=== PATIENT | male | born 1950 | race Caucasian/White ===

== ENCOUNTER 2020-03-29 13:05 | Emergency (ER) | payer BC, SELFPAY ==
[2020-03-29 13:05] VITALS: BP 149/68; PULSE 63; RESP 16; TEMP 36.1; O2SAT 100; BMI 24.3
--- NOTE | 2020-03-29 13:33 | ED.VISSUMM ---
- ER Visit Summary Date of Service: 03/29/20 Chief Complaint: Right leg pain. History of Present Illness: The patient is a 69 M who presents with right leg pain that has been getting worse over the past week. Patient states it is constant. Patient states it is burning. Patient states it is better with certain positions. Patient admits to a recent flight from [place] on 02/11/2020. Patient denies any fevers or chills. Patient denies any chest pain or shortness of breath. Patient denies any nausea or vomiting. Patient also complains of some pain over the medial aspect of the left knee. Patient denies any trauma or injury. Physical Examination: Vital signs are stable. Patient is afebrile. Patient is in no acute distress. There is some mild erythema and tenderness over the medial aspect of the right lower leg. There is no discharge or drainage. There is no abscess or fluctuance. There is good range of motion of the lower extremities bilaterally. There is also some mild tenderness over the medial aspect of the left knee. There is no edema or ecchymosis. There is no deformity. There is no joint effusion. There is no erythema on the left leg. Pedal pulses are equal bilateral. There are no sensory deficits. Test Results: CBC and basic metabolic profile were obtained and were within normal limits. D-dimer was elevated 2.11. Emergency Department Course and Treatment: Venous duplex was unable to be obtained today. Patient was given a dose of Lovenox here. Patient was given an order for an outpatient venous duplex of his lower extremities to be obtained tomorrow. Patient was instructed return as an outpatient tomorrow. Patient understood and was agreeable with the plan. All questions were answered. Disposition: Discharge home Impression: Bilateral lower extremity pain This note was generated with [employer] software. It may contain incorrect words, spelling, and punctuation that were not noted in review of the chart prior to signing ED Disposition - Plan for ED Patient: Disposition: Home or Assisted Living Diagnosis: Bilateral lower extremity pain Instructions: ED Deep Vein Thrombosis (DVT), ED Pain, Acute, Uncertain Cause
[2020-03-29 14:01] LABS: Absolute Lymphocyte Count 1.78 X10^3/uL (0.83-4.51); Absolute Neutrophil Count 4.2 X10^3/uL (2.0-7.7); Basophil# 0.05 X10^3/uL; Basophil% 0.7 % (0-1); Eosinophil# 0.25 X10^3/uL; Eosinophils% 3.6 % (0-5); Hematocrit 41.4 % (40-54); Lymphocyte # 1.78 X10^3/ul (4.0); Lymphocyte % 25.5 % (19-41); Mean Corp Hgb Conc 31.4 g/dL (32-36); Mean Corpuscular Hgb 28.6 pg (27.0-32.0); Mean Platelet Vol. 9.5 fl (6.2-12.0); Monocyte# 0.75 X10^3/uL; Monocyte% 10.7 % (0-10); NRBC Flagged by Analyzer 0 % (0-5); Neutrophil # 4.15 X10^3/uL (2.7-7.7); Neutrophil % 59.4 % (47-70); Platelet Count 331 K/mm3 (150-450); RBC Distribution Width CV 12.3 % (11.6-14.6); RBC Distribution Width SD 40.8 fl (35.1-43.9); Red Blood Count 4.55 M/mm3 (4.6-6.2)
[2020-03-29 14:13] LABS: D-Dimer Quantitative (DVT/PE) 2.11 FEU/ug/m (0.27-0.49)
[2020-03-29 14:19] LABS: Anion Gap 2 (5-15); BUN 17 mg/dL (7-18); BUN/Creat Ratio 17.2 RATIO (10-20); Calcium,Total 9.3 mg/dL (8.5-10.1); Chloride 108 mmol/L (98-107); Creatinine, Serum 0.99 mg/dL (0.70-1.30); EST Glomerular Filtration Rate 80 mL/min (>60); Est Glom Filt Rate - Afr Amer 97 mL/min (>60); Estimated Creatinine Clearance 72.41 ml/min; Glucose 89 mg/dL (74-106); Potassium 4.2 mmol/L (3.5-5.1); Sodium Level 139 mmol/L (136-145)
[2020-03-29] MEDS: Enoxaparin 80 MG/0.8 ML Syringe SC (14:54)
== END 2020-03-29 14:58 | disposition home or self-care (01) ==
PROVIDERS: Emergency Provider Emergency Medicine
DX: M79.604 Pain in right leg (principal); M25.562 Pain in left knee
CPT/HCPCS: 80048; 85025; 85379; 96372; 99282

== ENCOUNTER → 2020-03-30 10:46 | Outpatient (CLI) | payer BC, SELFPAY ==
[2020-03-29 13:05] VITALS: BMI 24.3
--- NOTE | 2020-03-30 10:56 | VDLE_ITS ---
Reason For Study: Pain and tenderness RIGHT LEFT CFV is compressible, spontaneous, phasic, GSV is normal. competent and demonstrates normal CFV is compressible, spontaneous, phasic, augmentation. competent, and demonstrates normal FV is compressible, spontaneous, phasic, augmentation. competent and demonstrates normal FV is compressible, spontaneous, phasic, augmentation. competent and demonstrates normal POP V is compressible, spontaneous, phasic, augmentation. competent and demonstrates normal POP V is compressible, spontaneous, phasic, augmentation. competent and demonstrates normal T/P Trunk is compressible. augmentation. PTV is compressible. T/P Trunk is compressible. RT PerV is compressible. PTV is compressible. Acute superficial vein thrombosis is noted LT PerV is compressible. in the right proximal calf GSV. Nonvascualrized structure noted in the left Thrombus filled varicose veins noted in the popliteal fossa measuring approximently 1.00 right prox-mid calf. x 1.69 x 4.05 cm. Procedure This is a venous duplex using B-mode, color flow and spectral Doppler. Exam performed in department. A preliminary report was called and/or faxed to ED. Done as next day ED scan, pt taken down to ED for treatment. Interpretation Summary No evidence for acute deep venous thrombosis bilateral lower extremities Superficial thrombophlebitis right proximal calf great saphenous vein and varicose veins of the proximal to mid calf Patent and compressible left great saphenous vein Left popliteal space 1 x 1.69 x 4.05 cm Bakers cyst. Clinical correlation would be appropriate Ordering Physician: Nic Kaur Performed By: Edna Rousseau RVT
== END ==
PROVIDERS: Referring Provider Emergency Medicine; Visit Provider Emergency Medicine
DX: M79.604 Pain in right leg (principal); M79.605 Pain in left leg; R79.1 Abnormal coagulation profile
CPT/HCPCS: 93970

== ENCOUNTER 2020-03-30 11:23 | Emergency (ER) | payer BC, SELFPAY ==
[2020-03-29 13:05] VITALS: BMI 24.3
[2020-03-30 11:24] VITALS: BP 137/78; PULSE 58; RESP 18; TEMP 36.2; O2SAT 99; BMI 25.2
--- NOTE | 2020-03-30 12:11 | ED.DCSUM_ITS ---
- ER Visit Summary Date of Service: 03/30/20 Chief Complaint: Right leg blood clot History of Present Illness: The patient is a 69 M who presents from outpatient venous duplex with a blood clot in his right leg. Patient was seen here yesterday and was scheduled to have an outpatient venous duplex of his right lower extremity to rule out DVT today. Patient had this done. There is an acute superficial vein thrombosis noted in the right proximal calf greater saphenous vein. There are thrombus filled varicose veins noted in the right proximal to mid calf. Patient denies any worsening pain today. Patient denies any fevers. Patient denies any chest pain or shortness of breath. Patient denies any nausea or vomiting. Physical Examination: Vital signs are stable. Patient is afebrile. Patient is in no acute distress. Musculoskeletal exam reveals some mild tenderness over t he medial aspect of the right lower leg. There is some erythema. There is some mild edema. There is full range of motion. Pedal pulses are equal bilaterally. This was unchanged from yesterday's exam. There is no tenderness or edema of the thigh. There is still some mild tenderness over the left knee area. There is no effusion. There is full range of motion. Test Results: Venous duplex report shows superficial vein thrombosis in the proximal calf greater saphenous vein and thrombus filled varicose veins in the right proximal to mid calf. Emergency Department Course and Treatment: Given that this is in the greater saphenous vein which is in line with the deep vein system, the recommendation is to place the patient on Xarelto 10 mg daily. Patient was given his first dose here. Patient was given a prescription for Xarelto. Patient was referred to a primary care physician for follow-up care in 5 to 7 days. Patient understood and was agreeable with the plan. All questions were answered. Disposition: Discharge home Impression: 1. Superficial vein thrombosis right greater saphenous vein This note was generated with [employer] dictation software. It may contain incorrect words, spelling, and punctuation that were not noted in review of the chart prior to signing ED Disposition - Plan for ED Patient: Disposition: Home or Assisted Living Diagnosis: Acute superficial venous thrombosis of right lower extremity Prescriptions: Rivaroxaban [Xarelto] 10 mg PO DAILY 45 Days #44 tab Transmission Status: Pending to [facility]30 Referrals: Asia Topete DO [STAFF PHYSICIAN] - 5-7 Days
[2020-03-30] MEDS: Rivaroxaban 10 MG Tablet PO (12:48)
[2020-03-30 12:50] VITALS: BP 133/68; PULSE 64; RESP 16; O2SAT 97
== END 2020-03-30 12:51 | disposition home or self-care (01) ==
PROVIDERS: Emergency Provider Emergency Medicine
DX: I82.811 Embolism and thrombosis of superficial veins of right lower extremity (principal)
CPT/HCPCS: 99283

== ENCOUNTER → 2020-04-07 | Outpatient (CLI) | payer BC, SELFPAY ==
[2020-03-30 11:24] VITALS: BMI 25.2
[2020-04-07 17:48] LABS: Pathologist Comment May follow
[2020-04-07 17:50] LABS: Pathologist Comment May follow
[2020-04-07 21:33] LABS: AUTO B FLUID DILUENT BKGD CT WBC <0.1 RBC <0.01 (W<.1,R<.01); Source- Body Fluid SYNOVIAL
[2020-04-07 21:41] LABS: Source / Synovial Fluid LEFT KNEE; Viscosity / Synovial Fluid Sl. Viscous (HIGH)
[2020-04-07 21:42] LABS: Appearance /Synovial Fluid Sl hazy (CLEAR); Color / Synovial Fluid Yellow (Pale Yellow); RBC /Synovial Fluid 51 /mm3 (0); Synovial Fld Polynuclear WBC # 0.522 10^3/uL
[2020-04-07 21:43] LABS: Lymph 15 %; Monocyte /Synovial Fluid 19 %; Neutrophil 66 % (0-25); Synovial Fld Mononuclear WBC # 1.278 10^3/ul
[2020-04-07 21:46] LABS: AUTO B FLUID DILUENT BKGD CT WBC <0.1 RBC <0.01 (W<.1,R<.01); Source- Body Fluid SYNOVIAL
[2020-04-07 21:47] LABS: Appearance /Synovial Fluid Sl hazy (CLEAR); Color / Synovial Fluid Yellow (Pale Yellow); Source / Synovial Fluid RIGHT KNEE; Viscosity / Synovial Fluid Sl. Viscous (HIGH)
[2020-04-07 21:48] LABS: Lymph 4 %; Monocyte /Synovial Fluid 29 %; Neutrophil 67 % (0-25); RBC /Synovial Fluid 7 /mm3 (0); Synovial Fld Mononuclear WBC # 1.891 10^3/ul; Synovial Fld Mononuclear WBC % 26.3 %; Synovial Fld Polynuclear WBC # 5.301 10^3/uL; Synovial Fld Polynuclear WBC % 73.7 %
[2020-04-08 14:17] LABS: Pathologist Review Reviewed
== END | disposition home or self-care (01) ==
PROVIDERS: PCP Internal Medicine; Referring Provider Physician Assistant Surgical; Visit Provider Physician Assistant Surgical
DX: M17.12 Unilateral primary osteoarthritis, left knee (principal)
CPT/HCPCS: 87015; 87070; 87075; 87101; 87116; 87205; 87206; 89050; 89051; 89060

== ENCOUNTER → 2020-04-24 08:48 | Outpatient (CLI) | payer BC, SELFPAY ==
[2020-03-30 11:24] VITALS: BMI 25.2
--- NOTE | 2020-04-24 08:57 | VDLE_ITS ---
Reason For Study: Thrombophlebitis RIGHT CFV is compressible, spontaneous, phasic, competent and demonstrates normal augmentation. FV is compressible, spontaneous, phasic, competent and demonstrates normal augmentation. POP V is compressible, spontaneous, phasic, competent and demonstrates normal augmentation. T/P Trunk is compressible. PTV is compressible. RT PerV is compressible. GSV prox calf is partially compressible. with bright intraluminal echoes noted consistent with Chronic SVT. Thrombus filled varicose veins noted in the prox-mid calf. Procedure This is a venous duplex using B-mode, color flow and spectral Doppler. Exam performed in department. Compared to study done on 03/30/20. A preliminary report was called and/or faxed to [facility]. Interpretation Summary There is no evidence of right lower extremity deep vein thrombosis. Chronic superficial thrombophlebitis right proximal Great saphenous vein and right proximal to mid calf varicosities. Slight improvement noted since the previous examination of March 30, 2020 Ordering Physician: Asia Topete Referring Physician: Asia Topete Performed By: Edna Rousseau RVT
== END ==
PROVIDERS: PCP Internal Medicine; Referring Provider Internal Medicine; Visit Provider Internal Medicine
DX: I80.01 Phlebitis and thrombophlebitis of superficial vessels of right lower extremity (principal)
CPT/HCPCS: 93971

== ENCOUNTER → 2020-05-30 | Outpatient (CLI) | payer BC, SELFPAY ==
[2020-05-30 17:11] LABS: Pathologist Comment May follow
[2020-05-30 17:40] LABS: Synovial Fld Mononuclear WBC % 25.5 %; Synovial Fld Polynuclear WBC # 3.045 10^3/uL; Synovial Fld Polynuclear WBC % 74.5 %
[2020-05-30 18:54] LABS: AUTO B FLUID DILUENT BKGD CT WBC <0.1 RBC <0.01 (W<.1,R<.01); Monocyte /Synovial Fluid 15 %; Neutrophil 85 % (0-25); Source / Synovial Fluid RIGHT KNEE; Source- Body Fluid SYNOVIAL
[2020-05-30 18:55] LABS: Appearance /Synovial Fluid Cloudy (CLEAR)
[2020-05-30 18:56] LABS: Body Fluid QC Type(s) BF3Q,BF4Q; RBC /Synovial Fluid 234 /mm3 (0); Synovial Fld Mononuclear WBC # 1.043 10^3/ul
[2020-05-30 19:06] LABS: Color / Synovial Fluid Yellow (Pale Yellow)
[2020-06-02 12:10] LABS: Pathologist Review Reviewed
== END | disposition home or self-care (01) ==
LOC: LABSPEC 15:19
PROVIDERS: PCP Internal Medicine; Visit Provider Physician Assistant Surgical
DX: M17.11 Unilateral primary osteoarthritis, right knee (principal); M25.461 Effusion, right knee
CPT/HCPCS: 87070; 87075; 87077; 87186; 87205; 89050; 89051; 89060

== ENCOUNTER → 2020-06-04 11:37 | Outpatient (CLI) | payer BC, SELFPAY ==
[2020-06-04 11:51] LABS: Pathologist Comment May follow
[2020-06-04 12:33] LABS: Erythrocyte Sedimentation Rate 32 mm/hr (0-20)
[2020-06-04 12:37] LABS: Absolute Lymphocyte Count 1.65 X10^3/uL (0.83-4.51); Absolute Neutrophil Count 4.1 X10^3/uL (2.0-7.7); Basophil# 0.08 X10^3/uL; Basophil% 1.2 % (0-1); Eosinophil# 0.38 X10^3/uL; Eosinophils% 5.5 % (0-5); Hematocrit 40.2 % (40-54); Hemoglobin 12.6 g/dL (13.0-16.5); Lymphocyte # 1.65 X10^3/ul (4.0); Lymphocyte % 23.8 % (19-41); Mean Corp Hgb Conc 31.3 g/dL (32-36); Mean Corpuscular Hgb 28.8 pg (27.0-32.0); Mean Corpuscular Volume 91.8 fL (80-94); Monocyte# 0.74 X10^3/uL; Monocyte% 10.7 % (0-10); NRBC Flagged by Analyzer 0 % (0-5); Neutrophil # 4.06 X10^3/uL (2.7-7.7); Neutrophil % 58.5 % (47-70); Platelet Count 273 K/mm3 (150-450); RBC Distribution Width CV 13.4 % (11.6-14.6); RBC Distribution Width SD 45.9 fl (35.1-43.9); Red Blood Count 4.38 M/mm3 (4.6-6.2); White Blood Count 6.9 K/mm3 (4.4-11.0)
[2020-06-04 13:47] LABS: Synovial Fld Mononuclear WBC % 36.4 %; Synovial Fld Polynuclear WBC # 2.177 10^3/uL; Synovial Fld Polynuclear WBC % 63.6 %
[2020-06-04 13:49] LABS: RBC /Synovial Fluid 0.003 10^6/uL (0)
[2020-06-04 13:53] LABS: AUTO B FLUID DILUENT BKGD CT WBC <0.1 RBC <0.01 (W<.1,R<.01); CRYSTALS, BODY FLUID See PATH REV
[2020-06-04 13:54] LABS: Color / Synovial Fluid Straw (Pale Yellow); Source- Body Fluid SYNOVIAL; Viscosity / Synovial Fluid Liquid (HIGH)
[2020-06-04 13:55] LABS: Appearance /Synovial Fluid Sl hazy (CLEAR)
[2020-06-04 14:11] LABS: Lymph 5 %; Synovial Fld Mononuclear WBC # 1.248 10^3/ul
[2020-06-04 14:12] LABS: Monocyte /Synovial Fluid 34 %; Neutrophil 61 % (0-25)
[2020-06-05 11:23] LABS: Pathologist Review Reviewed
== END ==
PROVIDERS: PCP Internal Medicine; Referring Provider Physician Assistant Surgical; Visit Provider Physician Assistant Surgical
DX: M25.461 Effusion, right knee (principal); M70.41 Prepatellar bursitis, right knee; M11.261 Other chondrocalcinosis, right knee
CPT/HCPCS: 36415; 85025; 85652; 86140; 87070; 87075; 87205; 89050; 89051; 89060

== ENCOUNTER 2020-07-14 12:50 | Outpatient (RCR) | payer BC, SELFPAY ==
[2020-07-14 13:22] VITALS: BP 144/77; PULSE 67; RESP 18; TEMP 36.9; BMI 25.2
--- NOTE | 2020-07-14 14:47 | PCM.WC.HP ---
(1) Ulcer of right medial lower extremity Status: Chronic Code(s): L97.819 - Non-pressure chronic ulcer of other part of right lower leg with unspecified severity (2) Edema of right lower extremity Status: Chronic Code(s): R60.0 - Localized edema (3) Thrombophlebitis of right lower extremity Status: Chronic Code(s): I80.291 - Phlebitis and thrombophlebitis of other deep vessels of right lower extremity History of Present Illness Date of Service: 07/14/20 Past Medical History Past Medical History: Chronic Problems Ulcer of right medial lower extremity (Chronic) Edema of right lower extremity (Chronic) Thrombophlebitis of right lower extremity (Chronic) Allergies/Adverse Reactions: Allergies No Known Allergies Allergy (Verified 03/30/20 11:26) Home Medications: Ambulatory Orders Medication Instructions Recorded Cholecalciferol (Vitamin D3) 2,000 unit PO 07/14/20 [D3-2000] Rivaroxaban [Xarelto] 10 mg PO DAILY 07/14/20 Ubidecarenone [Co Q-10] 300 mg PO 07/14/20 Smoking Status: Never smoker - Physical Exam Vital Signs Temp Pulse Resp BP 98.5 F 67 18 144/77 H 07/14/20 13:22 07/14/20 13:22 07/14/20 13:22 07/14/20 13:22 Wound Measurements and Assessment WC - Nurse 1 - General Ulcer Measurement Start: 07/14/20 13:06 Freq: Status: Active Protocol: Activity Type Activity Date Activity User E-Sign Co-Sign Detail Recorded Client Recorded Date Recorded By Document 07/14/20 13:22 DL [id number] 07/14/20 13:41 DL 07/14/20 13:22 Wound Center Nurse 1 [Ulcer Assessment] #1 R Med Ankle -Current Size (cm) - Length 0.8 -Current Size (cm) - Width 0.8 -Current Size (cm) - Depth 0.1 -Total Square Cm 0.64 -Photo Taken Yes -Classification - Thickness Full Thickness without Exposed Support Structure -Exudate Amt Medium -Exudate Type Serosanguineous -Wound Margin Distinct, Outline Attached -Granulation Amt Large (67-100%) -Granulation Quality [place] -Necrosis Amt Small (1-33%) -Necrotic Tissue Type Adherent Slough -Structure Exposed N/A -Texture (Mackenzie-wound Skin Appearance) Scarring -Moisture (Mackenzie-wound Skin Appearance Weeping ) -Color (Mackenzie-wound Skin Appearance) Hemosiderin Staining -Temperature ([place]ackenzie-wound Skin No Abnormality Appearance) (Pt Warm) -Tenderness on Palpation (Mackenzie-wound No Skin Appearance) -Ulcer Cleansing Rinsed/ Irrigated with Saline -Foul Odor after Cleansing No -Anesthetic Used 4% Lidocaine Solution [Edema Assessment] -Right Calf (cm) 38.5 -Right Ankle (cm) 27 -Left Calf (cm) 34.5 -Left Ankle (cm) 23 WC - Nurse 2 - General Ulcer CM Notes Start: 07/14/20 13:06 Freq: Status: Active Protocol: Activity Type Activity Date Activity User E-Sign Co-Sign Detail Recorded Client Recorded Date Recorded By Document 07/14/20 14:19 ALEX [id number] 07/14/20 14:20 ALEX 07/14/20 14:19 Wound Center Nurse 2 [Procedure/Treatment] #1 R Med Ankle -Time 14:19 -Correct Patient Yes -Correct Side, Site, Position Yes -Correct Procedure Yes -Procedure Performed Yes -Type of Procedure Debridement -Clinical Debridement Subcutaneous -Tissue Removed Subcutaneous -Post Debridement (cm) - Length 1.2 -Post Debridement (cm) - Width 1.2 -Post Debridement (cm) - Depth 0.2 -Total Square (Post) (cm) 1.44 -Area of Debridement (cm) - Length 1.2 -Area of Debridement (cm) - Width 1.2 -Total Square (Area) (cm) 1.44 -Tunneling No -Undermining/Tunneling No -Circular Undermining No -Wound/Ulcer Outcome Not Healed -Ulcer Cleansing Rinsed/ Irrigated with Saline -Foul Odor after Cleansing No -Bioengineered Tissue No -Bleeding Controlled with Pressure -Offloading No -Treatment Response Procedure Tolerated Well -Debridement - Subq, 1st 20sq cm Yes [See Physician Procedure note for Specifics] Pain Scale: 0-10 Numeric [Pain] -Is Patient Pain Free? Yes - Nurse 3 - General Ulcer D/C NN Start: 07/14/20 13:06 Freq: Status: Active Protocol: Activity Type Activity Date Activity User E-Sign Co-Sign Detail Recorded Client Recorded Date Recorded By Document 07/14/20 14:38 DL [id number] 07/14/20 14:40 DL 07/14/20 14:38 Wound Care Nurse 3 [Wound Dressing] #1 R Med Ankle -Ulcer Cleansing Rinsed/ Irrigated with Saline -Foul Odor after Cleansing No -Primary Dressing Applied Promogran Giuliana Matter -Primary Dressing Covered/Secured Dry Gauze & with Roll Gauze, Secured with Tape -Promogran Giuliana Matter 1 [Compression Applied] Right -Tubular Bandage Single Layer -Size of Tubigrip Used Size E -Size E ($) 1 [Post Procedure Tolerated] -Treatment Response Procedure Tolerated Well Pain Scale: 0-10 Numeric [Pain] -Is Patient Pain Free? Yes WC - Visit Discharge [Visit Discharge Information] -Discharge Condition Stable -Ambulatory Status Ambulatory -Transportation Private Auto Debridement Note Post-Debridement Measurements/Treatment WC - Nurse 2 - General Ulcer CM Notes Start: 07/14/20 13:06 Freq: Status: Active Protocol: Activity Type Activity Date Activity User E-Sign Co-Sign Detail Recorded Client Recorded Date Recorded By Document 07/14/20 14:19 [id number] 07/14/20 14:20 ALEX 07/14/20 14:19 Wound Center Nurse 2 #1 R Med Ankle -Time 14:19 -Correct Patient Yes -Correct Side, Site, Position Yes -Correct Procedure Yes -Procedure Performed Yes -Type of Procedure Debridement -Clinical Debridement Subcutaneous -Tissue Removed Subcutaneous -Post Debridement (cm) - Length 1.2 -Post Debridement (cm) - Width 1.2 -Post Debridement (cm) - Depth 0.2 -Total Square (Post) (cm) 1.44 -Area of Debridement (cm) - Length 1.2 -Area of Debridement (cm) - Width 1.2 -Total Square (Area) (cm) 1.44 -Tunneling No -Undermining/Tunneling No -Circular Undermining No -Wound/Ulcer Outcome Not Healed -Ulcer Cleansing Rinsed/ Irrigated with Saline -Foul Odor after Cleansing No -Bioengineered Tissue No -Bleeding Controlled with Pressure -Offloading No -Treatment Response Procedure Tolerated Well -Debridement - Subq, 1st 20sq cm Yes Pain Scale: 0-10 Numeric Is Patient Pain Free? Yes - Nurse 3 - General Ulcer D/C NN Start: 07/14/20 13:06 Freq: Status: Active Protocol: Activity Type Activity Date Activity User E-Sign Co-Sign Detail Recorded Client Recorded Date Recorded By Document 07/14/20 14:38 DL [id number] 07/14/20 14:40 DL 07/14/20 14:38 Wound Care Nurse 3 #1 R Med Ankle -Ulcer Cleansing Rinsed/ Irrigated with Saline -Foul Odor after Cleansing No -Primary Dressing Applied Promogran Giul[place] Matter -Primary Dressing Covered/Secured with Dry Gauze & Roll Gauze, Secured with Tape -Promogran Giuliana Matter 1 Right -Tubular Bandage Single Layer -Size of Tubigrip Used Size E -Size E ($) 1 Treatment Response Procedure Tolerated Well Pain Scale: 0-10 Numeric Is Patient Pain Free? Yes WC - Visit Discharge Discharge Condition Stable Ambulatory Status Ambulatory Transportation Private Auto Assessment/Plan Active Problems Ulcer of right medial lower extremity (Chronic) Edema of right lower extremity (Chronic) Thrombophlebitis of right lower extremity (Chronic)
--- NOTE | 2020-07-15 20:46 | HP.PCM_ITS ---
History of Present Illness Date of Service: 07/14/20 Chief Complaint: Non healing ulcer of right medial ankle History of Wound: Patient flew to [place] in January, he developed bilateral leg swelling and pain. On 03/30/20 he went to the ED for the bilateral leg edema. An ultrasound was performed and it was found that he had a superficial thrombophlebitis of his right proximal calf great saphenous vein and to varicose veins of the proximal mid calf. He was started on Xeralto. Repeat ultrasound of right leg on 04/24/20 showed some slight improvement from previous study. He developed effusion of his right knee that he had drained on 05/30/20 at [facility]. That seems to be resolved for the time being. He had an x- ray of his right ankle on 07/02/20 which showed swelling of his right ankle. He does have a history of vein issues for years. He has seen someone in the past, but does not remember who it was. For his wound care he has bee using over the counter antibiotic ointment and placing a non-adherent gauze over the right medial wound. He has stopped wearing compression because it has become uncomfortable. [facility] Home Medications cholecalciferol (vitamin D3) 2,000 unit PO 07/14/20 [History Last Taken Unknown] coenzyme Q10 300 mg PO 07/14/20 [History Last Taken Unknown] rivaroxaban 10 mg PO DAILY 07/14/20 [History Last Taken Unknown] Allergy/AdvReac Type Severity Reaction Status Date / Time No Known Allergies Allergy Verified 03/30/20 11:26 Social History Smoking Status: Never smoker ROS Constitutional Constitutional: Denies fever(s) Eyes Eyes: Reports none ENT HEENT: Reports none Cardiovascular Cardiovascular: Reports leg edema and leg ulcers; Denies chest pain or dyspnea at rest Respiratory/Chest Respiratory/Chest: Denies dyspnea or shortness of breath at rest Musculoskeletal Musculoskeletal: Reports extremity pain, joint pain and joint swelling Integumentary Integumentary: Reports wounds Neurologic Neurologic: Reports none Psychiatric Psychiatric: Reports none Endocrine Endocrinology: Denies excessive sweating, fatigue or flushing Hematologic/Lymphatic Hematologic/Lymphatic: Reports easy bleeding, easy bruising and other Physical Exam Narrative ?Physical Exam Vital Signs Temp Pulse Resp BP ?98.5 F ?67 ?18 ?144/77 H ?07/14/20 13:22 ?07/14/20 13:22 ?07/14/20 13:22 ?07/14/20 13:22 Wound Measurements and Assessment WC - Nurse 1 - General Ulcer Measurement? Start:? 07/14/20 13:06 Freq: ? Status: Active? Protocol: ? Activity Type Activity Date Activity User E-Sign Co-Sign Detail Recorded Client Recorded Date Recorded By ? ? ? Document 07/14/20 13:22 DL ? ? ? [id number] 07/14/20 13:41 DL ? 07/14/20 ? 13:22 Wound Center Nurse 1 ? [Ulcer Assessment] ? ?#1 R Med Ankle ? ? -Current Size (cm) - Length 0.8 ? -Current Size (cm) - Width 0.8 ? -Current Size (cm) - Depth 0.1 ? -Total Square Cm 0.64 ? -Photo Taken Yes ? -Classification - Thickness Full Thickness ? without Exposed ? Support ? Structure ? -Exudate Amt Medium ? -Exudate Type Serosanguineous ? -Wound Margin Distinct, ? Outline ? Attached ? -Granulation Amt Large (67-100%) ? -Granulation Quality [place] ? -Necrosis Amt Small (1-33%) ? -Necrotic Tissue Type Adherent Slough ? -Structure Exposed N/A ? -Texture (Mackenzie-wound Skin Appearance) Scarring ? -Moisture (Mackenzie-wound Skin Appearance Weeping ) ? ? -Color (Mackenzie-wound Skin Appearance) Hemosiderin ? Staining ? -Temperature (Mackenzie-wound Skin No Abnormality Appearance) (Pt Warm) ? -Tenderness on Palpation (Mackenzie-wound No Skin Appearance) ? ? -Ulcer Cleansing Rinsed/ ? Irrigated with ? Saline ? -Foul Odor after Cleansing No ? -Anesthetic Used 4% Lidocaine ? Solution [Edema Assessment] ? ?-Right Calf (cm) 38.5 ?-Right Ankle (cm) 27 ?-Left Calf (cm) 34.5 ?-Left Ankle (cm) 23 - Nurse 2 - General Ulcer CM Notes ? Start:? 07/14/20 13:06 Freq: ? Status: Active? Protocol: ? Activity Type Activity Date Activity User E-Sign Co-Sign Detail Recorded Client Recorded Date Recorded By ? ? ? Document 07/14/20 14:19 JF ? ? ? [id number] 07/14/20 14:20 JF ? 07/14/20 ? 14:19 Wound Center Nurse 2 ? [Procedure/Treatment] ? ?#1 R Med Ankle ? ? -Time 14:19 ? -Correct Patient Yes ? -Correct Side, Site, Position Yes ? -Correct Procedure Yes ? -Procedure Performed Yes ? -Type of Procedure Debridement ? -Clinical Debridement Subcutaneous ? -Tissue Removed Subcutaneous ? -Post Debridement (cm) - Length 1.2 ? -Post Debridement (cm) - Width 1.2 ? -Post Debridement (cm) - Depth 0.2 ? -Total Square (Post) (cm) 1.44 ? -Area of Debridement (cm) - Length 1.2 ? -Area of Debridement (cm) - Width 1.2 ? -Total Square (Area) (cm) 1.44 ? -Tunneling No ? -Undermining/Tunneling No ? -Circular Undermining No ? -Wound/Ulcer Outcome Not Healed ? -Ulcer Cleansing Rinsed/ ? Irrigated with ? Saline ? -Foul Odor after Cleansing No ? -Bioengineered Tissue No ? -Bleeding Controlled with Pressure ? -Offloading No ? -Treatment Response Procedure ? Tolerated Well ? -Debridement - Subq, 1st 20sq cm Yes [See Physician Procedure note for ? Specifics] ? Pain Scale: 0-10 Numeric ? [Pain] ? ?-Is Patient Pain Free? Yes - Nurse 3 - General Ulcer D/C NN ? Start:? 07/14/20 13:06 Freq: ? Status: Active? Protocol: ? Activity Type Activity Date Activity User E-Sign Co-Sign Detail Recorded Client Recorded Date Recorded By ? ? ? Document 07/14/20 14:38 DL ? ? ? [id number] 07/14/20 14:40 DL ? 07/14/20 ? 14:38 Wound Care Nurse 3 ? [Wound Dressing] ? ?#1 R Med Ankle ? ? -Ulcer Cleansing Rinsed/ ? Irrigated with ? Saline ? -Foul Odor after Cleansing No ? -Primary Dressing Applied Promogran ? Giuliana Matter ? -Primary Dressing Covered/Secured Dry Gauze & with Roll Gauze, ? Secured with ? Tape ? -Promogran Giuliana Matter 1 [Compression Applied] ? ?Right ? ? -Tubular Bandage Single Layer ? -Size of Tubigrip Used Size E ? -Size E ($) 1 [Post Procedure Tolerated] ? ?-Treatment Response Procedure ? Tolerated Well Pain Scale: 0-10 Numeric ? [Pain] ? ?-Is Patient Pain Free? Yes WC - Visit Discharge ? [Visit Discharge Information] ? ?-Discharge Condition Stable ?-Ambulatory Status Ambulatory ?-Transportation Private Auto Debridement Note Post-Debridement Measurements/Treatment WC - Nurse 2 - General Ulcer CM Notes ? Start:? 07/14/20 13:06 Freq: ? Status: Active? Protocol: ? Activity Type Activity Date Activity User E-Sign Co-Sign Detail Recorded Client Recorded Date Recorded By ? ? ? Document 07/14/20 14:19 JF ? ? ? [id number] 07/14/20 14:20 JF ? 07/14/20 ? 14:19 Wound Center Nurse 2 ? #1 R Med Ankle ? ?-Time 14:19 ?-Correct Patient Yes ?-Correct Side, Site, Position Yes ?-Correct Procedure Yes ?-Procedure Performed Yes ?-Type of Procedure Debridement ?-Clinical Debridement Subcutaneous ?-Tissue Removed Subcutaneous ?-Post Debridement (cm) - Length 1.2 ?-Post Debridement (cm) - Width 1.2 ?-Post Debridement (cm) - Depth 0.2 ?-Total Square (Post) (cm) 1.44 ?-Area of Debridement (cm) - Length 1.2 ?-Area of Debridement (cm) - Width 1.2 ?-Total Square (Area) (cm) 1.44 ?-Tunneling No ?-Undermining/Tunneling No ?-Circular Undermining No ?-Wound/Ulcer Outcome Not Healed ?-Ulcer Cleansing Rinsed/ ? Irrigated with ? Saline ?-Foul Odor after Cleansing No ?-Bioengineered Tissue No ?-Bleeding Controlled with Pressure ?-Offloading No ?-Treatment Response Procedure ? Tolerated Well ?-Debridement - Subq, 1st 20sq cm Yes Pain Scale: 0-10 Numeric ? Is Patient Pain Free? Yes - Nurse 3 - General Ulcer D/C NN ? Start:? 07/14/20 13:06 Freq: ? Status: Active? Protocol: ? Activity Type Activity Date Activity User E-Sign Co-Sign Detail Recorded Client Recorded Date Recorded By ? ? ? Document 07/14/20 14:38 DL ? ? ? [id number] 07/14/20 14:40 DL ? 07/14/20 ? 14:38 Wound Care Nurse 3 ? #1 R Med Ankle ? ?-Ulcer Cleansing Rinsed/ ? Irrigated with ? Saline ?-Foul Odor after Cleansing No ?-Primary Dressing Applied Promogran ? Giuliana Matter ?-Primary Dressing Covered/Secured with Dry Gauze & ? Roll Gauze, ? Secured with ? Tape ?-Promogran Giuliana Matter 1 Right ? ?-Tubular Bandage Single Layer ?-Size of Tubigrip Used Size E ?-Size E ($) 1 Treatment Response Procedure ? Tolerated Well Pain Scale: 0-10 Numeric ? Is Patient Pain Free? Yes WC - Visit Discharge ? Discharge Condition Stable Ambulatory Status Ambulatory Transportation Private Auto Const alert and oriented x3 General Appearance: cooperative and well kempt HEENT normocephalic Head and Scalp: normocephalic Eyes EOMs intact bilaterally Neck full ROM Lymph Lymphatic: no lymphadenopathy noted Resp normal respiratory effort Effort and Inspection: able to speak in complete sentences Auscultation: clear to auscultation bilaterally Cardio regular rate and regular rhythm Peripheral Pulses: dorsalis pedis pulses present GI normal to inspection, nondistended, normoactive bowel sounds Extremity full ROM, normal capillary refill and no calf tenderness Peripheral Pulses: Yes dorsalis pedis pulses present Right Lower Extremity: lower leg other (+2-+3 pitting edema of right lower leg) Skin Wounds: wounds noted Wound Narrative: Right medial ankle ulcer that is ulcer, tender to palpation. There is edema of right lower extremity. Right medial ankle ulcer debrided with #3 curette. Debridement was into the subcutaneous tissue with fat layer exposed. There was a small amount of bleeding that was controlled with gauze and light pressure. Patient tolerated the procedure well. (see Physical exam narrative for the wound measurements and the nursing care info along with vitals). Wound culture obtained. Neuro CN's II-XII intact bilaterally Psych mental status grossly normal Assessment and Debridement #1 R Med Ankle: Post-Debridement Measurements/Treatment - Nurse 1 - General Ulcer Assessment Start: 07/14/20 13:06 Freq: Status: Active Protocol: PÉREZ Activity Type Activity Date Activity User E-Sign Co-Sign Detail Recorded Client Recorded Date Recorded By Document 07/14/20 13:22 DL [id number] 07/14/20 13:41 DL - Nurse 2 - General Ulcer CM Notes Start: 07/14/20 13:06 Freq: Status: Active Protocol: Activity Type Activity Date Activity User E-Sign Co-Sign Detail Recorded Client Recorded Date Recorded By Document 07/14/20 14:19 ALEX [id number] 07/14/20 14:20 ALEX - Nurse 3 - General Ulcer D/C NN Start: 07/14/20 13:06 Freq: Status: Active Protocol: Activity Type Activity Date Activity User E-Sign Co-Sign Detail Recorded Client Recorded Date Recorded By Document 07/14/20 14:38 DL [id number] 07/14/20 14:40 DL Medical Records Data Attestation: I reviewed the patient's medical records Assessment & Plan Assessment/Plan (1) Ulcer of right medial lower extremity: Status: Chronic Code(s): L97.819 - Non-pressure chronic ulcer of other part of right lower leg with unspecified severity Qualifiers: Non-pressure ulcer stage: with fat layer exposed Qualified Code(s): L97.812 - Non-pressure chronic ulcer of other part of right lower leg with fat layer exposed Plan: Will obtain Arterial and venous studies of bilateral lower extremities Wound care will be Giuliana covered by gauze daily. Will start a single layer tubigrip for mild compression until further studies obtained. Wound culture obtained after the debridement. Depending on the results of the wound culture, it maybe necessary for treatment with antibiotics. He is retiring after this week so he will not be standing for long periods of time on hard concrete. Will be more aggressive with compression after receive results from his vascular testing. Follow up one week. 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
== END 2020-07-18 23:59 ==
LOC: WC 12:50
PROVIDERS: PCP Internal Medicine; Visit Provider Nurse Practitioner Family
DX: L97.312 Non-pressure chronic ulcer of right ankle with fat layer exposed (principal); R60.0 Localized edema; Z86.718 Personal history of other venous thrombosis and embolism; I80.291 Phlebitis and thrombophlebitis of other deep vessels of right lower extremity
CPT/HCPCS: 11042; 99213; G0463

== ENCOUNTER → 2020-07-14 | Outpatient (CLI) | payer BC, SELFPAY ==
[2020-07-14 13:22] VITALS: BMI 25.2
== END | disposition home or self-care (01) ==
LOC: LABSPEC 07-15 13:53
PROVIDERS: PCP Internal Medicine; Visit Provider Nurse Practitioner Family
DX: L97.319 Non-pressure chronic ulcer of right ankle with unspecified severity (principal)
CPT/HCPCS: 87070; 87075; 87077; 87186; 87205

== ENCOUNTER 2020-08-11 10:15 | Outpatient (RCR) | payer MEDICARE, OTHER, SELFPAY ==
[2020-07-19 00:58] VITALS: BP 144/77; PULSE 67; RESP 18; TEMP 36.9
[2020-07-21 10:00] VITALS: BP 162/68; PULSE 70; TEMP 36.2; BMI 25.2
--- NOTE | 2020-07-21 11:49 | PCM.WC.PN ---
History of Present Illness Date of Service: 07/21/20 Chief Complaint: Non healing ulcer of right medial ankle History of Wound: Patient flew to [place] in January, he developed bilateral leg swelling and pain. On 03/30/20 he went to the ED for the bilateral leg edema. An ultrasound was performed and it was found that he had a superficial thrombophlebitis of his right proximal calf great saphenous vein and to varicose veins of the proximal mid calf. He was started on Xeralto. Repeat ultrasound of right leg on 04/24/20 showed some slight improvement from previous study. He developed effusion of his right knee that he had drained on 05/30/[address] [facility]. That seems to be resolved for the time being. He had an x-ray of his right ankle on 07/02/20 which showed swelling of his right ankle. He does have a history of vein issues for years. He has seen someone in the past, but does not remember who it was. For his wound care he has bee using over the counter antibiotic ointment and placing a non-adherent gauze over the right medial wound. He has stopped wearing compression because it has become uncomfortable. Wound care - Giuliana daily dressing changes covered with gauze daily to ulcer. Tubigrip for compression. Wound culture from 07/15/20 was positive for Staphylococcus haemolyticus. He was started on Doxycycline. He is retired as of today (his last day was last Tuesday). Vascular studies are scheduled for 07/29. Today he denies fever. He states he has a good appetite. Progress of Wound: Stable. Objective Data Objective Data Vital Signs: Vital Signs Temp Pulse Resp BP 97.2 F L 70 18 162/68 H 07/21/20 10:00 07/21/20 10:00 07/19/20 00:58 07/21/20 10:00 Body Mass Index (BMI) 25.2 Assessment & Plan Assessment/Plan (1) Ulcer of right medial lower extremity: Status: Chronic Code(s): L97.819 - Non-pressure chronic ulcer of other part of right lower leg with unspecified severity Qualifiers: Non-pressure ulcer stage: with fat layer exposed Qualified Code(s): L97.812 - Non-pressure chronic ulcer of other part of right lower leg with fat layer exposed (2) Edema of right lower extremity: Status: Chronic Code(s): R60.0 - Localized edema (3) 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 A subcutaneous debridement was performed and the patient tolerated it. Wound care - Giuliana covered with gauze, secured with tape, daily to right medial ankle ulcer. Tubigrip for compression. Wound culture 07/15/20 positive for Staphylococcus haemolyticus. He was started on Doxycycline. He is scheduled for vascular studies on 07/29/20. He is recently retired (Tuesday was his last day). Instructed him to elevated his legs to help with the edema. Encouraged increased protein intake and Vitamin C (500-1,000mg daily). Follow up one week. Charges/Coding Procedures Integumentary [id number]: [id number] Kathi subq tissue 20 sq cm/< Physical Exam Const alert and oriented x3 HEENT normocephalic Head and Scalp: atraumatic Eyes PERRL Resp normal respiratory effort Cardio regular rate Extremity normal capillary refill General Extremity: edema right lower extremity (+2-+3 edema) Skin Wound Narrative: right medial ankle ulcer is extremely tender to palpation. Neuro CN's II-XII intact bilaterally Debridement Note Debridement Note Post-Debridement Measurements and Additional Note: Post-Debridement Measurements/Treatment WC - Nurse 2 - General Ulcer CM Notes Start: 07/21/20 10:00 Freq: Status: Active Protocol: Activity Type Activity Date Activity User E-Sign Co-Sign Detail Recorded Client Recorded Date Recorded By Document 07/21/20 10:20 ALEX [id number] 07/21/20 10:22 ALEX 07/21/20 10:20 Wound Center Nurse 2 #1 R Med Ankle -Time 10:20 -Correct Patient Yes -Correct Side, Site, Position Yes -Correct Procedure Yes -Procedure Performed Yes -Type of Procedure Debridement -Clinical Debridement Subcutaneous -Tissue Removed Subcutaneous -Post Debridement (cm) - Length 2.8 -Post Debridement (cm) - Width 1.6 -Post Debridement (cm) - Depth 0.2 -Total Square (Post) (cm) 4.48 -Area of Debridement (cm) - Length 2.8 -Area of Debridement (cm) - Width 1.6 -Total Square (Area) (cm) 4.48 -Tunneling No -Undermining/Tunneling No -Circular Undermining No -Wound/Ulcer Outcome Not Healed -Ulcer Cleansing Rinsed/ Irrigated with Saline -Foul Odor after Cleansing No -Bioengineered Tissue No -Bleeding Controlled with Pressure -Offloading No -Treatment Response Procedure Tolerated Well -Debridement - Subq, 1st 20sq cm Yes Pain Scale: 0-10 Numeric Is Patient Pain Free? Yes - Nurse 3 - General Ulcer D/C NN Start: 07/21/20 10:00 Freq: Status: Active Protocol: Activity Type Activity Date Activity User E-Sign Co-Sign Detail Recorded Client Recorded Date Recorded By Document 07/21/20 10:38 SHAKA [id number] 07/21/20 10:39 SHAKA 07/21/20 10:38 Wound Care Nurse 3 #1 R Med Ankle -Ulcer Cleansing Rinsed/ Irrigated with Saline -Primary Dressing Applied Promogran -Primary Dressing Covered/Secured with Dry Gauze, Secured with Tape -Promogran 1 Pain Scale: 0-10 Numeric Is Patient Pain Free? Yes WC - Visit Discharge Discharge Condition Stable Ambulatory Status Ambulatory Transportation Private Auto Accompanied by Wound debrided: Medial ankle Laterality: Right Type of Debridement: Excisional debridement Anesthesia Used: 5% Lidocaine Gel Depth: Down to and including healthy tissue and in the subcutaneous layer Percentage of wound debrided: 100 Instrument Used: 3mm curette Tissue Removed: Subcutaneous tissue and slough Severity: Fat Layer Exposed Amount of bleeding with debridement: Mild Bleeding Controlled with: Pressure Patient tolerated procedure: Patient tolerated procedure well
[2020-07-28 10:29] VITALS: BP 167/83; PULSE 71; TEMP 36.1; BMI 25.2
[2020-07-28 11:22] VITALS: BP 152/81
--- NOTE | 2020-07-28 12:40 | PCM.WC.PN ---
History of Present Illness Date of Service: 07/28/20 Chief Complaint: Non healing ulcer of right medial ankle History of Wound: Patient flew to [place] in January, he developed bilateral leg swelling and pain. On 03/30/20 he went to the ED for the bilateral leg edema. An ultrasound was performed and it was found that he had a superficial thrombophlebitis of his right proximal calf great saphenous vein and to varicose veins of the proximal mid calf. He was started on Xeralto. Repeat ultrasound of right leg on 04/24/20 showed some slight improvement from previous study. He developed effusion of his right knee that he had drained on 05/30/20 at [facility]. That seems to be resolved for the time being. He had an x-ray of his right ankle on 07/02/20 which showed swelling of his right ankle. He does have a history of vein issues for years. He has seen someone in the past, but does not remember who it was. For his wound care he has bee using over the counter antibiotic ointment and placing a non-adherent gauze over the right medial wound. He has stopped wearing compression because it has become uncomfortable. Wound care - Giuliana daily dressing changes covered with gauze daily to ulcer. Tubigrip for compression. Wound culture from 07/15/20 was positive for Staphylococcus haemolyticus. He was started on Doxycycline. He is recently retired. Vascular studies are scheduled for tomorrow,07/29. Today he denies fever. He states he has a good appetite. Progress of Wound: Stable. Objective Data Objective Data Vital Signs: Vital Signs Temp Pulse Resp BP 96.9 F L 71 18 152/81 H 07/28/20 10:29 07/28/20 10:29 07/19/20 00:58 07/28/20 11:22 Body Mass Index (BMI) 25.2 Assessment & Plan Assessment/Plan (1) Ulcer of right medial lower extremity: QUALIFIERS: Non-pressure ulcer stage: with fat layer exposed Qualified Code(s): L97.812 - Non-pressure chronic ulcer of other part of right lower leg with fat layer exposed (2) Edema of right lower extremity: (3) Thrombophlebitis of right lower extremity: PLAN: Patient was evaluated in the wound healing center today.? A subcutaneous debridement was performed and the patient tolerated it well. Wound care - Giuliana covered with ABD, secured with tape, daily to right medial ankle ulcer. Single Tubigrip for compression. Wound culture 07/15/20 positive for Staphylococcus haemolyticus.? He was started on Doxycycline. He is scheduled for vascular studies tomorrow, 07/29/20. He is recently retired.? Instructed him to elevated his legs several times per day to help with the edema. Encouraged increased protein intake and Vitamin C (500-1,000mg daily). Follow up one week. Charges/Coding Procedures Integumentary [id number]: [id number] Kathi subq tissue 20 sq cm/< Physical Exam Const alert and oriented x3 General Appearance: cooperative HEENT normocephalic Head and Scalp: atraumatic Eyes PERRL Resp normal respiratory effort Cardio regular rate GI non-distended Extremity normal capillary refill and no calf tenderness General Extremity: edema bilateral (right lower leg edema is greater than than the left.) lower extremity Skin Wound Narrative: Right medial ankle cluster ulcer is stable. It is extremely painful to palpation. Neuro CN's II-XII intact bilaterally Psych Appearance: grossly normal Debridement Note Debridement Note Post-Debridement Measurements and Additional Note: Post-Debridement Measurements/Treatment - Nurse 1 - General Ulcer Assessment Start: 07/21/20 10:00 Freq: Status: Active Protocol: FRITZ.MEGAN Activity Type Activity Date Activity User E-Sign Co-Sign Detail Recorded Client Recorded Date Recorded By Document 07/21/20 10:00 SHAKA [id number] 07/21/20 10:04 KR Document 07/28/20 10:29 SHAKA [id number] 07/28/20 10:39 KR 07/21/20 07/28/20 10:00 10:29 - Today's Visit Information Type of service Follow-up Visit Follow-up Visit (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 (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 ) ) Arrival Mode Ambulatory Ambulatory Patient Identification Verified (Name & Yes Yes ) Height and Weight Body Mass Index (BMI) 25.2 25.2 BMI Classification Overweight Overweight Vital Signs Temperature (97.8 F-99.1 F) 97.2 F L 96.9 F L Temperature Source Oral Temporal Pulse Rate (60-100) 70 71 Pulse Location Monitor Monitor Blood Pressure (90/60-120/80) 162/68 H 167/83 H Blood Pressure Mean (mm Hg) 99 111 Source Monitor Monitor Position Semi-Fowlers Semi-Fowlers Blood Pressure Location Right Arm Left Arm History Since Last Visit- (Skip if this is Patient's initial visit) Have you changed medications since your No No last visit? Any new allergies or adverse reactions No No Had a fall/change in ADL's that may No No increase risk of falls Signs or symptoms of abuse and/or No No neglect since last visit Have you been in the hospital since your No No last visit? Has dressing in place as prescribed Yes Yes Has compression in place as prescribed Yes Yes Has offloadiing in place as prescribed N/A N/A Experienced any changes in pain level or No No management Left Footwear Regular Shoe Regular Shoe Right Footwear Regular Shoe Regular Shoe Pain Scale: 0-10 Numeric Is Patient Pain Free? Yes Yes WC - Nurse 1 - General Ulcer Measurement Start: 07/21/20 10:00 Freq: Status: Active Protocol: Activity Type Activity Date Activity User E-Sign Co-Sign Detail Recorded Client Recorded Date Recorded By Document 07/21/20 10:00 KR [id number] 07/21/20 10:04 KR Document 07/28/20 10:29 KR [id number] 07/28/20 10:39 KR 07/21/20 07/28/20 10:00 10:29 Wound Center Nurse 1 #1 R Med Ankle -Current Size (cm) - Length 1.5 2.4 -Current Size (cm) - Width 1.9 1.5 -Current Size (cm) - Depth 0.1 0.2 -Total Square Cm 2.85 3.60 -Exudate Amt Small Small -Exudate Type Serosanguineous Serosanguineous -Wound Margin Distinct, Distinct, Outline Outline Attached Attached -Granulation Amt Medium (34-66%) Medium (34-66%) -Granulation Quality Red Red -Necrosis Amt Medium (34-66%) Medium (34-66%) -Necrotic Tissue Type Adherent Slough Adherent Slough -Texture (Mackenzie-wound Skin Appearance) Assessed, Assessed, Scarring Scarring -Moisture (Mackenzie-wound Skin Appearance) No Abnormality, No Abnormality, Assessed Assessed -Color (Mackenzie-wound Skin Appearance) No Abnormality, No Abnormality, Assessed Assessed -Temperature (Mackenzie-wound Skin No Abnormality No Abnormality Appearance) (Pt Warm) (Pt Warm) -Tenderness on Palpation (Mackenzie-wound No No Skin Appearance) -Ulcer Cleansing Rinsed/ Rinsed/ Irrigated with Irrigated with Saline Saline -Foul Odor after Cleansing No No -Anesthetic Used 4% Lidocaine 4% Lidocaine Solution,5% Solution Lidocaine Gel Right Calf (cm) 37.9 Right Ankle (cm) 27 WC - Nurse 2 - General Ulcer CM Notes Start: 07/21/20 10:00 Freq: Status: Active Protocol: Activity Type Activity Date Activity User E-Sign Co-Sign Detail Recorded Client Recorded Date Recorded By Document 07/21/20 10:20 [id number] 07/21/20 10:22 JF Document 07/28/20 11:06 [id number] 07/28/20 11:08 JF 07/21/20 07/28/20 10:20 11:06 Wound Center Nurse 2 #1 R Med Ankle -Time 10:20 11:07 -Correct Patient Yes Yes -Correct Side, Site, Position Yes Yes -Correct Procedure Yes Yes -Procedure Performed Yes Yes -Type of Procedure Debridement Debridement -Clinical Debridement Subcutaneous Subcutaneous -Tissue Removed Subcutaneous Subcutaneous -Post Debridement (cm) - Length 2.8 2 -Post Debridement (cm) - Width 1.6 0.8 -Post Debridement (cm) - Depth 0.2 2 -Total Square (Post) (cm) 4.48 1.6 -Area of Debridement (cm) - Length 2.8 2 -Area of Debridement (cm) - Width 1.6 0.8 -Total Square (Area) (cm) 4.48 1.6 -Tunneling No No -Undermining/Tunneling No No -Circular Undermining No No -Wound/Ulcer Outcome Not Healed Not Healed -Ulcer Cleansing Rinsed/ Rinsed/ Irrigated with Irrigated with Saline Saline -Foul Odor after Cleansing No No -Bioengineered Tissue No No -Bleeding Controlled with Pressure Pressure -Offloading No No -Treatment Response Procedure Procedure Tolerated Well Tolerated Well -Debridement - Subq, 1st 20sq cm Yes Yes Pain Scale: 0-10 Numeric Is Patient Pain Free? Yes Yes - Nurse 3 - General Ulcer D/C NN Start: 07/21/20 10:00 Freq: Status: Active Protocol: Activity Type Activity Date Activity User E-Sign Co-Sign Detail Recorded Client Recorded Date Recorded By Document 07/21/20 10:38 KR [id number] 05/03/21 10:39 KR Document 07/28/20 11:22 KR [id number] 07/28/20 11:23 KR 07/21/20 07/28/20 10:38 11:22 Wound Care Nurse 3 #1 R Med Ankle -Ulcer Cleansing Rinsed/ Rinsed/ Irrigated with Irrigated with Saline Saline -Primary Dressing Applied Promogran Promogran Giuliana Matter -Primary Dressing Covered/Secured with Dry Gauze, Dry Gauze, Secured with Secured with Tape Tape -Promogran 1 -Promogran Giuliana Matter 1 Vital Signs Blood Pressure (90/60-120/80) 152/81 H Blood Pressure Mean (mm Hg) 104 Source Monitor Position Semi-Fowlers Blood Pressure Location Left Arm Pain Scale: 0-10 Numeric Is Patient Pain Free? Yes Yes WC - Visit Discharge Discharge Condition Stable Stable Ambulatory Status Ambulatory Ambulatory Transportation Private Auto Private Auto Accompanied by Wound debrided: medial ankle ulcer Laterality: Right Type of Debridement: Excisional debridement Anesthesia Used: 5% Lidocaine Gel Depth: Down to and including healthy tissue and in the subcutaneous layer Percentage of wound debrided: 100 Instrument Used: 3mm curette Tissue Removed: Subcutaneous tissue and slough Severity: Fat Layer Exposed Amount of bleeding with debridement: Mild Bleeding Controlled with: Pressure Patient tolerated procedure: Patient tolerated procedure well
--- NOTE | 2020-07-29 08:54 | VDLE_ITS ---
Reason For Study: Edema lower legs RIGHT LEFT CFV is compressible, spontaneous, phasic, CFV is compressible, spontaneous, phasic, competent and demonstrates normal competent, and demonstrates normal augmentation. augmentation. FV is compressible, spontaneous, phasic, FV is compressible, spontaneous, phasic, competent and demonstrates normal competent and demonstrates normal augmentation. augmentation. POP V is compressible, spontaneous, phasic, POP V is compressible, spontaneous, phasic, competent and demonstrates normal competent and demonstrates normal augmentation. augmentation. T/P Trunk is compressible. T/P Trunk is compressible. PTV is compressible. PTV is compressible. RT PerV is compressible. LT PerV is compressible. Varicose veins in prox valf are compressible. SFJ is competent and measures 0.72 x 0.62 cm. Compared to 04/24/2020. GSV proximal thigh measures 0.36 x 0.34 cm. SFJ is INCOMPETENT and measures 0.97 x 0.85 GSV above knee is competent. cm. GSV at knee measures 0.21 x 0.23 cm. GSV proximal thigh measures 0.89 x 0.99 cm. GSV below knee is INCOMPETENT for greater GSV at knee measures 0.31 x 0.33 cm. than 0.5 seconds. GSV INCOMPETENT throughout for greater than SSV proximal calf is competent and measures 0.5 seconds. 0.16 x 0.17 cm. ASV mid thigh is INCOMPETENT for greater than 0.5 seconds and measures 0.23 x 0.23 cm. SSV proximal calf is INCOMPETENT for greater than 0.5 seconds and measures 0.25 x 0.24 cm. Procedure This is a venous duplex using B-mode, color flow and spectral Doppler. Exam performed in department. Patient was scanned in reverse Trendelenburg position during reflux assessment. A preliminary report was called and/or faxed to [facility] and [facility]. VL/Venous Duplex US - Renzo Extrem Interpretation Summary Deep veins of the lower extremities are bilaterally patent and compressible seg mentally. There is no evidence of deep vein thrombosis on either side. Valvular competence appears in tact within the proximal deep venous systems bilaterally. The great saphenous veins appear bila terally patent and compressible segmentally. The right sapheno-femoral junction is incompetent . T he left sapheno- femoral junction is competent . The right great saphenous vein appears segmenta lly incompetent. The left great saphenous vein appears competent above the knee. The left great saph enous vein appears incompetent below the knee. The right small saphenous vein is patent and incomp etent. The left small saphenous vein is patent and competent. The accessory saphenous vein in the rig ht mid-thigh is incompetent. The varicosities in the right proximal calf are compressible, deonna cating resolution of the superficial thrombophlebitis previously noted in a prior study on 04/24/2020. Ordering Physician: Nieves Doherty Referring Physician: Asia Topete M.D. Performed By: Edna Rousseau RVT
--- NOTE | 2020-07-29 08:54 | ART_ITS ---
Reason For Study: Rt medial malleolus ulcer Procedure A bilateral lower extremity continuous wave Doppler with analog waveform analysis,segmental pressures,and ankle brachial indexes without exercise. Left Segmental Pressures Left brachial= 133mmHg. Left posterior tibial artery = 190mmHg. Left dorsalis pedis artery = 174mmHg. Left digit = 90 mmHg. The left dorsalis pedis waveforms are triphasic. The left posterior tibial artery waveforms are triphasic. Right Segmental Pressures Right brachial= 136mmHg. Right dorsalis pedis artery = 178mmHg. Right digit = 128 mmHg. The right dorsalis pedis waveforms are triphasic. Indices The right ankle brachial index by the dorsalis pedis is 1.31. The right digital-brachial index is 1.01. The left ankle brachial index by the dorsalis pedis is 1.28. The left ankle brachial index by the posterior tibial artery is 1.40. The left digital-brachial index is 0.66. VL/Lower Ext Art Exam w/o Exercis Interpretation Summary Triphasic Doppler waveforms are noted at ankle level bilaterally. Pulse-volume recordings appear satisfactory at all levels bilaterally, including low-thigh, calf, ankle, and d igital levels. Resting ankle-brachial indices are normal bilaterally. The right digital-brachi al index is normal. The left digital-brachial index is mildly diminished. Arterial flow appears normal at ankle level bilaterally, and at digital level o n the right. There is evidence of mild, distal, small-vessel arterial occlusive disease at digital le ashok on the left. Ordering Physician: Nieves Doherty Referring Physician: Asia Topete M.D. Performed By: Edna Rousseau RVT
[2020-08-05 13:37] VITALS: BP 111/60; PULSE 83; TEMP 36.2; BMI 25.2
--- NOTE | 2020-08-05 16:58 | PCM.WC.PN ---
History of Present Illness Date of Service: 08/05/20 Chief Complaint: Non healing ulcer of right medial ankle History of Wound: Patient flew to [place] in January, he developed bilateral leg swelling and pain. On 03/30/20 he went to the ED for the bilateral leg edema. An ultrasound was performed and it was found that he had a superficial thrombophlebitis of his right proximal calf great saphenous vein and to varicose veins of the proximal mid calf. He was started on Xeralto. Repeat ultrasound of right leg on 04/24/20 showed some slight improvement from previous study. He developed effusion of his right knee that he had drained on 05/30/20 at [facility]. That seems to be resolved for the time being. He had an x-ray of his right ankle on 07/02/20 which showed swelling of his right ankle. He does have a history of vein issues for years. He has seen someone in the past, but does not remember who it was. For his wound care he has been using over the counter antibiotic ointment and placing a non-adherent gauze over the right medial wound. He has stopped wearing compression because it has become uncomfortable. Wound care - Giuliana daily dressing changes covered with gauze daily to ulcer. Tubigrip for compression. Wound culture from 07/15/20 was positive for Staphylococcus haemolyticus. He was started on Doxycycline. Venous studies on 07/29/20 showed: Deep veins of the lower extremities show no evidence of deep vein thrombosis. The right sapheno-femoral junction is incompetent. The right great saphenous vein appears segmentally incompetent. The left great saphenous vein appears incompetent below the knee. The right small saphenous vein is patent and incompetent. The accessory saphenous vein in the right mid-thigh is incompetent. The varicosities in the right proximal calf are compressible, indicating resolution of the superficial thrombophlebitis previously noted in a prior study on 04/24/20. Arterial studies on 07/29/20 show: Left ALLYSON = 1.28. Right ALLYSON=1.31. The left digital-brachial index is mildly diminished. There is evidence of mild, distal, small-vessel arterial occlusive disease at the digital level on the left. Dr. Henry will be consulted to evaluate his venous incompetence. Today he denies fever. He states he has a good appetite. Progress of Wound: Improved. Objective Data Objective Data Vital Signs: Vital Signs Temp Pulse Resp BP 97.2 F L 83 18 111/60 08/05/20 13:37 08/05/20 13:37 07/19/20 00:58 08/05/20 13:37 Body Mass Index (BMI) 25.2 Physical Exam Const alert and oriented x3 General Appearance: cooperative HEENT normocephalic Eyes PERRL Resp normal respiratory effort Cardio regular rate Extremity normal capillary refill General Extremity: edema bilateral lower extremity (Right lower extremity edema is greater than the left lower leg ) Details: mild Skin Wound Narrative: Right medial ankle ulcer is pink and painful. Neuro CN's II-XII intact bilaterally Psych Appearance: grossly normal Debridement Note Debridement Note Post-Debridement Measurements and Additional Note: Post-Debridement Measurements/Treatment - Nurse 1 - General Ulcer Assessment Start: 07/21/20 10:00 Freq: Status: Active Protocol: [email or web address].[email or web address] Activity Type Activity Date Activity User E-Sign Co-Sign Detail Recorded Client Recorded Date Recorded By Document 07/21/20 10:00 KR [id number] 07/21/20 10:04 KR Document 07/28/20 10:29 KR [id number] 07/28/20 10:39 KR Document 08/05/20 13:37 KR [id number] 08/05/20 13:39 KR 07/21/20 07/28/20 08/05/20 10:00 10:29 13:37 - Today's Visit Information Type of service Follow-up Visit Follow-up Visit Follow-up Visit (Physician/VASCULAR TECHNICIAN (Physician/VASCULAR TECHNICIAN (Physician/VASCULAR TECHNICIAN ) ) ) Arrival Mode Ambulatory Ambulatory Ambulatory Patient Identification Verified (Name & Yes Yes Yes ) Height and Weight Body Mass Index (BMI) 25.2 25.2 25.2 BMI Classification Overweight Overweight Overweight Vital Signs Temperature (97.8 F-99.1 F) 97.2 F L 96.9 F L 97.2 F L Temperature Source Oral Temporal Temporal Pulse Rate (60-100) 70 71 83 Pulse Location Monitor Monitor Monitor Blood Pressure (90/60-120/80) 162/68 H 167/83 H 111/60 Blood Pressure Mean (mm Hg) 99 111 77 Source Monitor Monitor Monitor Position Semi-Fowlers Semi-Fowlers Semi-Fowlers Blood Pressure Location Right Arm Left Arm Right Arm History Since Last Visit- (Skip if this is Patient's initial visit) Have you changed medications since your No No No last visit? Any new allergies or adverse reactions No No No Had a fall/change in ADL's that may No No No increase risk of falls Signs or symptoms of abuse and/or No No No neglect since last visit Have you been in the hospital since your No No No last visit? Has dressing in place as prescribed Yes Yes Yes Has compression in place as prescribed Yes Yes Yes Has offloadiing in place as prescribed N/A N/A N/A Experienced any changes in pain level or No No No management Left Footwear Regular Shoe Regular Shoe Regular Shoe Right Footwear Regular Shoe Regular Shoe Regular Shoe Pain Scale: 0-10 Numeric Is Patient Pain Free? Yes Yes Yes WC - Nurse 1 - General Ulcer Measurement Start: 07/21/20 10:00 Freq: Status: Active Protocol: Activity Type Activity Date Activity User E-Sign Co-Sign Detail Recorded Client Recorded Date Recorded By Document 07/21/20 10:00 KR [id number] 07/21/20 10:04 KR Document 07/28/20 10:29 KR [id number] 07/28/20 10:39 KR Document 08/05/20 13:37 KR [id number] 08/05/20 13:39 KR 07/21/20 07/28/20 08/05/20 10:00 10:29 13:37 Wound Center Nurse 1 #1 R Med Ankle -Current Size (cm) - Length 1.5 2.4 1.4 -Current Size (cm) - Width 1.9 1.5 1 -Current Size (cm) - Depth 0.1 0.2 0.1 -Total Square Cm 2.85 3.60 1.4 -Exudate Amt Small Small Small -Exudate Type Serosanguineous Serosanguineous Serosanguineous -Wound Margin Distinct, Distinct, Distinct, Outline Outline Outline Attached Attached Attached -Granulation Amt Medium (34-66%) Medium (34-66%) None Present (0 %) -Granulation Quality Red Red -Necrosis Amt Medium (34-66%) Medium (34-66%) Small (1-33%) -Necrotic Tissue Type Adherent Slough Adherent Slough Adherent Slough -Texture (Mackenzie-wound Skin Appearance) Assessed, Assessed, Assessed, Scarring Scarring Scarring -Moisture (Mackenzie-wound Skin Appearance) No Abnormality, No Abnormality, Assessed Assessed Assessed -Color (Mackenzie-wound Skin Appearance) No Abnormality, No Abnormality, Assessed Assessed -Temperature (Mackenzie-wound Skin No Abnormality No Abnormality No Abnormality Appearance) (Pt Warm) (Pt Warm) (Pt Warm) -Tenderness on Palpation (Mackenzie-wound No No No Skin Appearance) -Ulcer Cleansing Rinsed/ Rinsed/ Rinsed/ Irrigated with Irrigated with Irrigated with Saline Saline Saline -Foul Odor after Cleansing No No No -Anesthetic Used 4% Lidocaine 4% Lidocaine 5% Lidocaine Solution,5% Solution Gel Lidocaine Gel Right Calf (cm) 37.9 39.1 Right Ankle (cm) 27 26.6 WC - Nurse 2 - General Ulcer CM Notes Start: 07/21/20 10:00 Freq: Status: Active Protocol: Activity Type Activity Date Activity User E-Sign Co-Sign Detail Recorded Client Recorded Date Recorded By Document 07/21/20 10:20 [id number] 07/21/20 10:22 Document 07/28/20 11:06 [id number] 07/28/20 11:08 Document 08/05/20 13:53 [id number] 08/05/20 13:55 07/21/20 07/28/20 08/05/20 10:20 11:06 13:53 Wound Center Nurse 2 #1 R Med Ankle -Time 10:20 11:07 13:53 -Correct Patient Yes Yes Yes -Correct Side, Site, Position Yes Yes Yes -Correct Procedure Yes Yes Yes -Procedure Performed Yes Yes Yes -Type of Procedure Debridement Debridement Debridement -Clinical Debridement Subcutaneous Subcutaneous Subcutaneous -Tissue Removed Subcutaneous Subcutaneous Subcutaneous -Post Debridement (cm) - Length 2.8 2 1.4 -Post Debridement (cm) - Width 1.6 0.8 0.9 -Post Debridement (cm) - Depth 0.2 2 0.2 -Total Square (Post) (cm) 4.48 1.6 1.26 -Area of Debridement (cm) - Length 2.8 2 1.4 -Area of Debridement (cm) - Width 1.6 0.8 0.9 -Total Square (Area) (cm) 4.48 1.6 1.26 -Tunneling No No No -Undermining/Tunneling No No No -Circular Undermining No No No -Wound/Ulcer Outcome Not Healed Not Healed Not Healed -Ulcer Cleansing Rinsed/ Rinsed/ Rinsed/ Irrigated with Irrigated with Irrigated with Saline Saline Saline -Foul Odor after Cleansing No No No -Bioengineered Tissue No No No -Bleeding Controlled with Pressure Pressure Pressure -Offloading No No No -Treatment Response Procedure Procedure Procedure Tolerated Well Tolerated Well Tolerated Well -Debridement - Subq, 1st 20sq cm Yes Yes Yes Pain Scale: 0-10 Numeric Is Patient Pain Free? Yes Yes Yes - Nurse 3 - General Ulcer D/C NN Start: 07/21/20 10:00 Freq: Status: Active Protocol: Activity Type Activity Date Activity User E-Sign Co-Sign Detail Recorded Client Recorded Date Recorded By Document 07/21/20 10:38 KR [id number] 07/21/20 10:39 KR Document 07/28/20 11:22 KR [id number] 07/28/20 11:23 KR Document 08/05/20 14:20 KR [id number] 08/05/20 14:21 KR 07/21/20 07/28/20 08/05/20 10:38 11:22 14:20 Wound Care Nurse 3 #1 R Med Ankle -Ulcer Cleansing Rinsed/ Rinsed/ Irrigated with Irrigated with Saline Saline -Primary Dressing Applied Promogran Promogran Promogran Giuliana Matter -Primary Dressing Covered/Secured with Dry Gauze, Dry Gauze, Dry Gauze, Secured with Secured with Secured with Tape Tape Tape -Promogran 1 1 -Promogran Giuliana Matter 1 Right -Tubular Bandage Double Layer -Size of Tubigrip Used Size D -Size D ($) 2 Vital Signs Blood Pressure (90/60-120/80) 152/81 H Blood Pressure Mean (mm Hg) 104 Source Monitor Position Semi-Fowlers Blood Pressure Location Left Arm Pain Scale: 0-10 Numeric Is Patient Pain Free? Yes Yes Yes WC - Visit Discharge Discharge Condition Stable Stable Stable Ambulatory Status Ambulatory Ambulatory Ambulatory Transportation Private Auto Private Auto Private Auto Accompanied by Wound debrided: Right medial ankle ulcer Laterality: Right Type of Debridement: Excisional debridement Anesthesia Used: 5% Lidocaine Gel Depth: Down to and including healthy tissue and in the subcutaneous layer Percentage of wound debrided: 100 Instrument Used: 3mm curette Tissue Removed: Subcutaneous tissue and slough Amount of bleeding with debridement: Mild Bleeding Controlled with: Pressure Patient tolerated procedure: Patient tolerated procedure well
[2020-08-11 10:12] VITALS: BP 149/98; PULSE 73; RESP 20; TEMP 36.8; BMI 25.2
--- NOTE | 2020-08-11 11:04 | PN.PCM_ITS ---
History of Present Illness Date of Service: 08/11/20 Chief Complaint: Non healing ulcer of right medial ankle History of Wound: Patient flew to [place] in January, he developed bilateral leg swelling and pain. On 03/30/20 he went to the ED for the bilateral leg edema. An ultrasound was performed and it was found that he had a superficial thrombophlebitis of his right proximal calf great saphenous vein and to varicose veins of the proximal mid calf. He was started on Xeralto. Repeat ultrasound of right leg on 04/24/20 showed some slight improvement from previous study. He developed effusion of his right knee that he had drained on 05/30/20 at [facility]. That seems to be resolved for the time being. He had an x- ray of his right ankle on 07/02/20 which showed swelling of his right ankle. He does have a history of vein issues for years. He has seen someone in the past, but does not remember who it was. For his wound care he had been using over the counter antibiotic ointment and placing a non-adherent gauze over the right medial wound. He has stopped wearing compression because it has become uncomfortable. Wound care - Giuliana daily dressing changes covered with gauze daily to ulcer. Double tubigrip for compression. Wound culture from 07/15/20 was positive for Staphylococcus haemolyticus. He was started on Doxycycline. Venous studies on 07/29/20 showed: Deep veins of the lower extremities show no evidence of deep vein thrombosis. The right sapheno-femoral junction is incompetent. The right great saphenous vein appears segmentally incompetent. The left great saphenous vein appears incompetent below the knee. The right small saphenous vein is patent and incompetent. The accessory saphenous vein in the right mid-thigh is incompetent. The varicosities in the right proximal calf are compressible, indicating resolution of the superficial thrombophlebitis previously noted in a prior study on 04/24/20. Arterial studies on 07/29/20 show: Left ALLYSON = 1.28. Right ALLYSON=1.31. The left digital-brachial index is mildly diminished. There is evidence of mild, distal, small-vessel arterial occlusive disease at the digital level on the left. He has an appointment with Dr. Henry on August 20. Today he denies fever. He states he has a good appetite. Progress of Wound: Improved. Still painful with palpation and especially with debridement. Objective Data Objective Data Vital Signs: Vital Signs Temp Pulse Resp BP 98.2 F 73 20 H 149/98 H 08/11/20 10:12 08/11/20 10:12 08/11/20 10:12 08/11/20 10:12 Body Mass Index (BMI) 25.2 Physical Exam Const alert and oriented x3 General Appearance: cooperative HEENT normocephalic Head and Scalp: atraumatic Eyes PERRL Resp normal respiratory effort Cardio regular rate GI non-tender Extremity normal capillary refill General Extremity: edema bilateral lower extremity Details: mild Skin Wound Narrative: Right medial ankle ulcer cluster, decreasing in size. Continues to be painful with palpation. Neuro CN's II-XII intact bilaterally Psych Appearance: grossly normal Debridement Note Debridement Note Post-Debridement Measurements and Additional Note: Post-Debridement Measurements/Treatment WC - Nurse 1 - General Ulcer Assessment Start: 07/21/20 10:00 Freq: Status: Active Protocol: PÉREZ Activity Type Activity Date Activity User E-Sign Co-Sign Detail Recorded Client Recorded Date Recorded By Document 07/21/20 10:00 KR [id number] 07/21/20 10:04 KR Document 07/28/20 10:29 KR [id number] 07/28/20 10:39 KR Document 08/05/20 13:37 KR [id number] 08/05/20 13:39 KR Document 08/11/20 10:12 DL [id number] 08/11/20 10:21 DL 07/21/20 07/28/20 08/05/20 10:00 10:29 13:37 - Today's Visit Information Type of service Follow-up Visit Follow-up Visit Follow-up Visit (Physician/INDUSTRIAL ENGINEERING DIRECTOR (Physician/INDUSTRIAL ENGINEERING DIRECTOR (Physician/INDUSTRIAL ENGINEERING DIRECTOR ) ) ) Arrival Mode Ambulatory Ambulatory Ambulatory Transfer Assistance Patient Identification Verified (Name & Yes Yes Yes ) Patient Requires Transmission-Based Precautions Height and Weight Body Mass Index (BMI) 25.2 25.2 25.2 BMI Classification Overweight Overweight Overweight Vital Signs Temperature (97.8 F-99.1 F) 97.2 F L 96.9 F L 97.2 F L Temperature Source Oral Temporal Temporal Pulse Rate (60-100) 70 71 83 Pulse Location Monitor Monitor Monitor Respiratory Rate (12-18) Respiratory rate source Blood Pressure (90/60-120/80) 162/68 H 167/83 H 111/60 Blood Pressure Mean (mm Hg) 99 111 77 Source Monitor Monitor Monitor Position Semi-Fowlers Semi-Fowlers Semi-Fowlers Blood Pressure Location Right Arm Left Arm Right Arm History Since Last Visit- (Skip if this is Patient's initial visit) Have you changed medications since your No No No last visit? Any new allergies or adverse reactions No No No Had a fall/change in ADL's that may No No No increase risk of falls Signs or symptoms of abuse and/or No No No neglect since last visit Have you been in the hospital since your No No No last visit? Has dressing in place as prescribed Yes Yes Yes Has compression in place as prescribed Yes Yes Yes Has offloadiing in place as prescribed N/A N/A N/A Experienced any changes in pain level or No No No management Left Footwear Regular Shoe Regular Shoe Regular Shoe Right Footwear Regular Shoe Regular Shoe Regular Shoe Pain Scale: 0-10 Numeric Is Patient Pain Free? Yes Yes Yes 08/11/20 10:12 WC - Today's Visit Information Type of service Follow-up Visit (Physician/INDUSTRIAL ENGINEERING DIRECTOR ) Arrival Mode Ambulatory Transfer Assistance None Patient Identification Verified (Name & Yes ) Patient Requires Transmission-Based No Precautions Height and Weight Body Mass Index (BMI) 25.2 BMI Classification Overweight Vital Signs Temperature (97.8 F-99.1 F) 98.2 F Temperature Source Temporal Pulse Rate (60-100) 73 Pulse Location Monitor Respiratory Rate (12-18) 20 H Respiratory rate source Observation Blood Pressure (90/60-120/80) 149/98 H Blood Pressure Mean (mm Hg) 115 Source Monitor Position Blood Pressure Location History Since Last Visit- (Skip if this is Patient's initial visit) Have you changed medications since your No last visit? Any new allergies or adverse reactions No Had a fall/change in ADL's that may No increase risk of falls Signs or symptoms of abuse and/or neglect since last visit Have you been in the hospital since your No last visit? Has dressing in place as prescribed Yes Has compression in place as prescribed Yes Has offloadiing in place as prescribed N/A Experienced any changes in pain level or No management Left Footwear Right Footwear Pain Scale: 0-10 Numeric Is Patient Pain Free? Yes WC - Nurse 1 - General Ulcer Measurement Start: 07/21/20 10:00 Freq: Status: Active Protocol: Activity Type Activity Date Activity User E-Sign Co-Sign Detail Recorded Client Recorded Date Recorded By Document 07/21/20 10:00 KR [id number] 07/21/20 10:04 KR Document 07/28/20 10:29 KR [id number] 07/28/20 10:39 KR Document 08/05/20 13:37 KR [id number] 08/05/20 13:39 KR Document 08/11/20 10:12 DL [id number] 08/11/20 10:21 DL 07/21/20 07/28/20 08/05/20 10:00 10:29 13:37 Wound Center Nurse 1 #1 R Med Ankle -Current Size (cm) - Length 1.5 2.4 1.4 -Current Size (cm) - Width 1.9 1.5 1 -Current Size (cm) - Depth 0.1 0.2 0.1 -Total Square Cm 2.85 3.60 1.4 -Photo Taken -Exudate Amt Small Small Small -Exudate Type Serosanguineous Serosanguineous Serosanguineous -Wound Margin Distinct, Distinct, Distinct, Outline Outline Outline Attached Attached Attached -Granulation Amt Medium (34-66%) Medium (34-66%) None Present (0 %) -Granulation Quality Red Red -Necrosis Amt Medium (34-66%) Medium (34-66%) Small (1-33%) -Necrotic Tissue Type Adherent Slough Adherent Slough Adherent Slough -Structure Exposed -Texture (Mackenzie-wound Skin Appearance) Assessed, Assessed, Assessed, Scarring Scarring Scarring -Moisture (Mackenzie-wound Skin Appearance) No Abnormality, No Abnormality, Assessed Assessed Assessed -Color (Mackenzie-wound Skin Appearance) No Abnormality, No Abnormality, Assessed Assessed -Temperature (Mackenzie-wound Skin No Abnormality No Abnormality No Abnormality Appearance) (Pt Warm) (Pt Warm) (Pt Warm) -Tenderness on Palpation (Mackenzie-wound No No No Skin Appearance) -Ulcer Cleansing Rinsed/ Rinsed/ Rinsed/ Irrigated with Irrigated with Irrigated with Saline Saline Saline -Foul Odor after Cleansing No No No -Anesthetic Used 4% Lidocaine 4% Lidocaine 5% Lidocaine Solution,5% Solution Gel Lidocaine Gel Right Calf (cm) 37.9 39.1 Right Ankle (cm) 27 26.6 08/11/20 10:12 Wound Center Nurse 1 #1 R Med Ankle -Current Size (cm) - Length 0.2 -Current Size (cm) - Width 0.1 -Current Size (cm) - Depth 0.1 -Total Square Cm 0.02 -Photo Taken No -Exudate Amt None Present -Exudate Type -Wound Margin Flat & Intact -Granulation Amt Small (1-33%) -Granulation Quality -Necrosis Amt Small (1-33%) -Necrotic Tissue Type Adherent Slough -Structure Exposed N/A -Texture (Mackenzie-wound Skin Appearance) Scarring -Moisture (Mackenzie-wound Skin Appearance) No Abnormality -Color (Mackenzie-wound Skin Appearance) Hemosiderin Staining -Temperature (Mackenzie-wound Skin Appearance) -Tenderness on Palpation (Mackenzie-wound No Skin Appearance) -Ulcer Cleansing Rinsed/ Irrigated with Saline -Foul Odor after Cleansing Yes, Due to Product Use -Anesthetic Used 4% Lidocaine Solution,5% Lidocaine Gel Right Calf (cm) 36 Right Ankle (cm) 25 - Nurse 2 - General Ulcer CM Notes Start: 07/21/20 10:00 Freq: Status: Active Protocol: Activity Type Activity Date Activity User E-Sign Co-Sign Detail Recorded Client Recorded Date Recorded By Document 07/21/20 10:20 [id number] 07/21/20 10:22 Document 07/28/20 11:06 [id number] 07/28/20 11:08 Document 08/05/20 13:53 [id number] 08/05/20 13:55 Document 08/11/20 10:48 [id number] 08/11/20 10:55 07/21/20 07/28/20 08/05/20 10:20 11:06 13:53 Wound Center Nurse 2 #1 R Med Ankle -Time 10:20 11:07 13:53 -Correct Patient Yes Yes Yes -Correct Side, Site, Position Yes Yes Yes -Correct Procedure Yes Yes Yes -Procedure Performed Yes Yes Yes -Type of Procedure Debridement Debridement Debridement -Clinical Debridement Subcutaneous Subcutaneous Subcutaneous -Tissue Removed Subcutaneous Subcutaneous Subcutaneous -Post Debridement (cm) - Length 2.8 2 1.4 -Post Debridement (cm) - Width 1.6 0.8 0.9 -Post Debridement (cm) - Depth 0.2 2 0.2 -Total Square (Post) (cm) 4.48 1.6 1.26 -Area of Debridement (cm) - Length 2.8 2 1.4 -Area of Debridement (cm) - Width 1.6 0.8 0.9 -Total Square (Area) (cm) 4.48 1.6 1.26 -Tunneling No No No -Undermining/Tunneling No No No -Circular Undermining No No No -Wound/Ulcer Outcome Not Healed Not Healed Not Healed -Ulcer Cleansing Rinsed/ Rinsed/ Rinsed/ Irrigated with Irrigated with Irrigated with Saline Saline Saline -Foul Odor after Cleansing No No No -Bioengineered Tissue No No No -Bleeding Controlled with Pressure Pressure Pressure -Offloading No No No -Treatment Response Procedure Procedure Procedure Tolerated Well Tolerated Well Tolerated Well -Debridement - Subq, 1st 20sq cm Yes Yes Yes Pain Scale: 0-10 Numeric Is Patient Pain Free? Yes Yes Yes 08/11/20 10:48 Wound Center Nurse 2 #1 R Med Ankle -Time 10:49 -Correct Patient Yes -Correct Side, Site, Position Yes -Correct Procedure Yes -Procedure Performed Yes -Type of Procedure Debridement -Clinical Debridement Subcutaneous -Tissue Removed Subcutaneous -Post Debridement (cm) - Length 1.7 -Post Debridement (cm) - Width 0.7 -Post Debridement (cm) - Depth 0.1 -Total Square (Post) (cm) 1.19 -Area of Debridement (cm) - Length 1.7 -Area of Debridement (cm) - Width 0.7 -Total Square (Area) (cm) 1.19 -Tunneling No -Undermining/Tunneling No -Circular Undermining No -Wound/Ulcer Outcome Not Healed -Ulcer Cleansing Rinsed/ Irrigated with Saline -Foul Odor after Cleansing No -Bioengineered Tissue No -Bleeding Controlled with Pressure -Offloading No -Treatment Response Procedure Tolerated Well -Debridement - Subq, 1st 20sq cm Yes Pain Scale: 0-10 Numeric Is Patient Pain Free? Yes - Nurse 3 - General Ulcer D/C NN Start: 07/21/20 10:00 Freq: Status: Active Protocol: Activity Type Activity Date Activity User E-Sign Co-Sign Detail Recorded Client Recorded Date Recorded By Document 07/21/20 10:38 KR [id number] 07/21/20 10:39 KR Document 07/28/20 11:22 KR [id number] 07/28/20 11:23 KR Document 08/05/20 14:20 KR [id number] 08/05/20 14:21 KR 07/21/20 07/28/20 08/05/20 10:38 11:22 14:20 Wound Care Nurse 3 #1 R Med Ankle -Ulcer Cleansing Rinsed/ Rinsed/ Irrigated with Irrigated with Saline Saline -Primary Dressing Applied Promogran Promogran Promogran Giuliana Matter -Primary Dressing Covered/Secured with Dry Gauze, Dry Gauze, Dry Gauze, Secured with Secured with Secured with Tape Tape Tape -Promogran 1 1 -Promogran Giuliana Matter 1 Right -Tubular Bandage Double Layer -Size of Tubigrip Used Size D -Size D ($) 2 Vital Signs Blood Pressure (90/60-120/80) 152/81 H Blood Pressure Mean (mm Hg) 104 Source Monitor Position Semi-Fowlers Blood Pressure Location Left Arm Pain Scale: 0-10 Numeric Is Patient Pain Free? Yes Yes Yes WC - Visit Discharge Discharge Condition Stable Stable Stable Ambulatory Status Ambulatory Ambulatory Ambulatory Transportation Private Auto Private Auto Private Auto Accompanied by Wound debrided: Right medial ankle ulcer Laterality: Right Type of Debridement: Excisional debridement Anesthesia Used: 5% Lidocaine Gel Depth: Down to and including healthy tissue and in the subcutaneous layer Percentage of wound debrided: 100 Instrument Used: 3mm curette Tissue Removed: Subcutaneous tissue and slough Severity: Fat Layer Exposed Amount of bleeding with debridement: Mild Bleeding Controlled with: Pressure Patient tolerated procedure: Patient tolerated procedure well Assessment/Plan Assessment/Plan (1) Ulcer of right medial lower extremity: CODE(S): L97.819 - Non-pressure chronic ulcer of other part of right lower leg with unspecified severity QUALIFIERS: Non-pressure ulcer stage: with fat layer exposed Qualified Code(s): L97.812 - Non-pressure chronic ulcer of other part of right lower leg with fat layer exposed PLAN: Patient was evaluated in the wound healing center today.? A subcutaneous debridement was performed and the patient tolerated it. Wound care - Giuliana covered with gauze, secured with tape, daily to right medial ankle ulcer. Double Tubigrip for compression. Wound culture 07/15/20 positive for Staphylococcus haemolyticus.? He will continue the Doxycycline. He had his vascular studies on 07/29/20. He has an appointment on August [address] Henry to discuss his venous insufficiency. Instructed him to elevated his legs to help with the edema. Encouraged increased protein intake and Vitamin C (500-1,000mg daily). Follow up 3 weeks with me. He'll have a courtesy visit in 2 weeks with another provider. (2) Edema of right lower extremity: CODE(S): R60.0 - Localized edema (3) Thrombophlebitis of right lower extremity: CODE(S): I80.291 - Phlebitis and thrombophlebitis of other deep vessels of right lower extremity
== END 2020-08-18 23:59 ==
LOC: WC 10:15
PROVIDERS: PCP Internal Medicine; Referring Provider Nurse Practitioner Family; Visit Provider Nurse Practitioner Family
DX: L97.312 Non-pressure chronic ulcer of right ankle with fat layer exposed (principal); I80.291 Phlebitis and thrombophlebitis of other deep vessels of right lower extremity; R60.0 Localized edema; M79.89 Other specified soft tissue disorders; I87.2 Venous insufficiency (chronic) (peripheral)
CPT/HCPCS: 11042; 93923; 93970

== ENCOUNTER → 2020-09-10 08:51 | Outpatient (CLI) | payer MEDICARE, OTHER, SELFPAY ==
[2020-09-01 10:18] VITALS: BMI 25.2
--- NOTE | 2020-09-10 08:55 | VDLE_ITS ---
Reason For Study: Swelling RIGHT CFV is compressible, spontaneous, phasic, competent and demonstrates normal augmentation. FV is compressible, spontaneous, phasic, competent and demonstrates normal augmentation. POP V is compressible, spontaneous, phasic, competent and demonstrates normal augmentation. T/P Trunk is compressible. PTV is compressible. RT PerV is compressible. SFJ is partially compressible with bright intraluminal echoes noted. GSV prox-mid thigh s/p EVLA. GSV prox thigh is partially compressible with no flow noted. GSV form distal thigh to ankle is compressible. Varicose vein in the distal thigh and prox-mid calf are noncompressible s/p Varithena. Procedure This is a venous duplex using B-mode, color flow and spectral Doppler. Exam performed in department. VL/Venous Duplex US, Unilateral Interpretation Summary Right leg with no DVT noted. Successful ablation of the saphenous vein and vari cose vein branches. There is still some patent branches noted of the mid to distal calf. Ordering Physician: Lamont Henry Referring Physician: Asia Topete M.D. Performed By: Edna Rousseau RVT
== END ==
PROVIDERS: PCP Internal Medicine; Referring Provider Surgery Vascular Surgery; Visit Provider Surgery Vascular Surgery
DX: M79.89 Other specified soft tissue disorders (principal); I83.893 Varicose veins of bilateral lower extremities with other complications; L97.909 Non-pressure chronic ulcer of unspecified part of unspecified lower leg with unspecified severity; Z86.718 Personal history of other venous thrombosis and embolism
CPT/HCPCS: 93971

== ENCOUNTER 2020-09-12 11:15 | Outpatient (RCR) | payer MEDICARE, OTHER, SELFPAY ==
[2020-08-19 00:37] VITALS: BP 149/98; PULSE 73; RESP 20; TEMP 36.8
[2020-08-26 11:26] VITALS: BP 155/68; PULSE 65; RESP 16; TEMP 36.6; BMI 25.2
--- NOTE | 2020-08-27 17:16 | PN.PCM_ITS ---
History of Present Illness Date of Service: 08/26/20 Chief Complaint: Non healing ulcer of right medial ankle History of Wound: Patient flew to [place] in January, he developed bilateral leg swelling and pain. On 03/30/20 he went to the ED for the bilateral leg edema. An ultrasound was performed and it was found that he had a superficial thrombophlebitis of his right proximal calf great saphenous vein and to varicose veins of the proximal mid calf. He was started on Xeralto. Repeat ultrasound of right leg on 04/24/20 showed some slight improvement from previous study. He developed effusion of his right knee that he had drained on 05/30/20 at [facility]. That seems to be resolved for the time being. He had an x- ray of his right ankle on 07/02/20 which showed swelling of his right ankle. He does have a history of vein issues for years. He has seen someone in the past, but does not remember who it was. For his wound care he had been using over the counter antibiotic ointment and placing a non-adherent gauze over the right medial wound. He has stopped wearing compression because it has become uncomfortable. Wound care - Giuliana daily dressing changes covered with gauze daily to ulcer. Double tubigrip for compression. Wound culture from 07/15/20 was positive for Staphylococcus haemolyticus. He was started on Doxycycline. Venous studies on 07/29/20 showed: Deep veins of the lower extremities show no evidence of deep vein thrombosis. The right sapheno-femoral junction is incompetent. The right great saphenous vein appears segmentally incompetent. The left great saphenous vein appears incompetent below the knee. The right small saphenous vein is patent and incompetent. The accessory saphenous vein in the right mid-thigh is incompetent. The varicosities in the right proximal calf are compressible, indicating resolution of the superficial thrombophlebitis previously noted in a prior study on 04/24/20. Arterial studies on 07/29/20 show: Left ALLYSON = 1.28. Right ALLYSON=1.31. The left digital-brachial index is mildly diminished. There is evidence of mild, distal, small-vessel arterial occlusive disease at the digital level on the left. He has an appointment with Dr. Henry on August 20. Patient relates that this went well and that he is planning on having an intervention with Dr. Henry tomorrow. Today he denies fever. He states he has a good appetite. Patient seen today by myself for coverage of my colleague, Nieves Irahetandell. Progress of Wound: improved Subjective Subjective Patient seen and examined resting comfortably. Patient denies any new pedal complaints. Patient denies any nausea, fever, chills, chest pain, shortness of breath, cough, streaking, purulence, vomiting. Objective Data Objective Data Vital Signs: Vital Signs Temp Pulse Resp BP 97.9 F 65 16 155/68 H 08/26/20 11:26 08/26/20 11:26 08/26/20 11:26 08/26/20 11:26 Oxygen Delivery Method Room Air Body Mass Index (BMI) 25.2 Physical Exam Const alert and no apparent distress General Appearance: cooperative and comfortable HEENT Head and Scalp: atraumatic Resp normal respiratory effort Effort and Inspection: able to speak in complete sentences Extremity normal capillary refill and no calf tenderness General Extremity: edema bilateral lower extremity, no tenderness to palpation of joints or extremities and other findings Other Details: Capillary refill time less than 3 seconds noted to digits ; Negative for clubbing or cyanosis Peripheral Pulses: Yes posterior tibial pulses present bilateral diminished and dorsalis pedis pulses present bilateral diminished Skin General Skin Exam: atrophy and dry skin; Negative for ecchymosis, erythema, eschar, pallor or dermatitis Rashes: no rashes Wounds: wounds noted Wound Narrative: ulcers noted to medial right ankle No malodor, erythema, purulence, probing to bone, streaking, fluctuation, crepitus, or other signs of infection. Skin is atrophic and hairless. Granular base Neuro Sensory Exam: extremities light-touch: normal Motor Exam: strength 5/5 throughout Psych Appearance: appropriate Attitude: calm Debridement Note Debridement Note Post-Debridement Measurements and Additional Note: Post-Debridement Measurements/Treatment - Nurse 1 - General Ulcer Assessment Start: 08/26/20 11:26 Freq: Status: Active Protocol: PÉREZ Activity Type Activity Date Activity User E-Sign Co-Sign Detail Recorded Client Recorded Date Recorded By Document 08/26/20 11:26 MW [id number] 08/26/20 11:35 MW 08/26/20 11:26 - Today's Visit Information Type of service Follow-up Visit (Physician/FINANCIAL SOLUTIONS ADVISOR ) Arrival Mode Ambulatory Transfer Assistance None Accompanied by Patient Identification Verified (Name & Yes ) Patient Requires Transmission-Based No Precautions Safety Precautions NA Height and Weight Body Mass Index (BMI) 25.2 BMI Classification Overweight Vital Signs Temperature (97.8 F-99.1 F) 97.9 F Temperature Source Temporal Pulse Rate (60-100) 65 Pulse Location Monitor Respiratory Rate (12-18) 16 Respiratory rate source Observation Oxygen Delivery Method Room Air Blood Pressure (90/60-120/80) 155/68 H Blood Pressure Mean (mm Hg) 97 Source Monitor Position Sitting Blood Pressure Location Left Arm History Since Last Visit- (Skip if this is Patient's initial visit) Have you changed medications since your No last visit? Any new allergies or adverse reactions No Had a fall/change in ADL's that may No increase risk of falls Signs or symptoms of abuse and/or No neglect since last visit Have you been in the hospital since your No last visit? Has dressing in place as prescribed Yes Has compression in place as prescribed Yes Has offloadiing in place as prescribed N/A Experienced any changes in pain level or No management Left Footwear Regular Shoe Right Footwear Regular Shoe Pain Scale: 0-10 Numeric Is Patient Pain Free? Yes WC - Nurse 1 - General Ulcer Measurement Start: 08/26/20 11:26 Freq: Status: Active Protocol: Activity Type Activity Date Activity User E-Sign Co-Sign Detail Recorded Client Recorded Date Recorded By Document 08/26/20 11:26 MW [id number] 08/26/20 11:35 MW 08/26/20 11:26 Wound Center Nurse 1 #1 R Med Ankle -Combined with other wound No -Current Size (cm) - Length 0.1 -Current Size (cm) - Width 0.1 -Current Size (cm) - Depth 0.1 -Total Square Cm 0.01 -Photo Taken No -Epithelialization None Present -Tunneling No -Undermining/Tunneling No -Circular Undermining No -Exudate Amt Small -Exudate Type Serosanguineous -Wound Margin Flat & Intact -Granulation Amt None Present (0 %) -Granulation Quality N/A -Slough/Fibrin Yes -Necrosis Amt Large (67-100%) -Necrotic Tissue Type Adherent Slough -Structure Exposed N/A -Texture (Mackenzie-wound Skin Appearance) Assessed, Scarring -Moisture (Mackenzie-wound Skin Appearance) Assessed,Dry/ Scaly -Color (Mackenzie-wound Skin Appearance) Assessed, Hemosiderin Staining -Temperature (Mackenzie-wound Skin No Abnormality Appearance) (Pt Warm) -Tenderness on Palpation (Mackenzie-wound Yes Skin Appearance) -Ulcer Cleansing Rinsed/ Irrigated with Saline -Foul Odor after Cleansing No -Anesthetic Used 5% Lidocaine Gel Lower Limb Edema Present Yes Right Calf (cm) 37.5 Right Ankle (cm) 25.0 WC - Nurse 2 - General Ulcer CM Notes Start: 08/26/20 11:26 Freq: Status: Active Protocol: Activity Type Activity Date Activity User E-Sign Co-Sign Detail Recorded Client Recorded Date Recorded By Document 08/26/20 12:10 ALEX [id number] 08/26/20 12:12 ALEX 08/26/20 12:10 Wound Center Nurse 2 #1 R Med Ankle -Time 12:10 -Correct Patient Yes -Correct Side, Site, Position Yes -Correct Procedure Yes -Procedure Performed Yes -Type of Procedure Debridement -Clinical Debridement Subcutaneous -Tissue Removed Subcutaneous -Post Debridement (cm) - Length 0.6 -Post Debridement (cm) - Width 0.3 -Post Debridement (cm) - Depth 0.1 -Total Square (Post) (cm) 0.18 -Area of Debridement (cm) - Length 0.6 -Area of Debridement (cm) - Width 0.3 -Total Square (Area) (cm) 0.18 -Tunneling No -Undermining/Tunneling No -Circular Undermining No -Wound/Ulcer Outcome Not Healed -Ulcer Cleansing Rinsed/ Irrigated with Saline -Bioengineered Tissue No -Bleeding Controlled with Pressure -Offloading No -Treatment Response Procedure Tolerated Well -Debridement - Subq, 1st 20sq cm Yes Pain Scale: 0-10 Numeric Is Patient Pain Free? Yes Wound debrided: medial ankle Laterality: Right Type of Debridement: Excisional debridement Anesthesia Used: 4% Lidocaine Solution Depth: in the subcutaneous layer Percentage of wound debrided: 100 Instrument Used: 3mm curette Tissue Removed: includes fibrous, devitalized, biofilm, callus and slough tissue Severity: Fat Layer Exposed Amount of bleeding with debridement: Mild Bleeding Controlled with: Pressure Patient tolerated procedure: Patient tolerated procedure well Assessment/Plan Assessment/Plan (1) Ulcer of right medial lower extremity: CODE(S): L97.819 - Non-pressure chronic ulcer of other part of right lower leg with unspecified severity QUALIFIERS: Non-pressure ulcer stage: with fat layer exposed Qualified Code(s): L97.812 - 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 A subcutaneous debridement was performed and the patient tolerated it. After verbal consent was obtained Wound care -hydrogel covered with Adaptic and gauze, secured with tape, daily to right medial ankle ulcer. Double Tubigrip for compression. Wound culture 07/15/20 positive for Staphylococcus haemolyticus. He has since finished doxycycline. He had his vascular studies on 07/29/20. He mullins an appointment on August [address] Henry where intervention was discussed. Patient is to have ablation intervention tomorrow with Dr. Henry. Instructed him to elevated his legs to help with the edema. Encouraged increased protein intake and Vitamin C (500-1,000mg daily). Patient to follow-up with normal care provider Vera Doherty in 1 to 2 weeks. All questions answered. This note was generated with [employer] dictation software. It may contain incorrect words, spelling, and punctuation that were not noted in checking the note before signing. The problems addressed require a low medical decision making level which includes two or more minor problems, a stable chronic illness, or an acute uncomplicated illness or injury.
[2020-09-01 10:18] VITALS: BP 154/89; PULSE 65; TEMP 36.6; BMI 25.2
--- NOTE | 2020-09-01 16:41 | PN.PCM_ITS ---
History of Present Illness Date of Service: 09/01/20 Chief Complaint: Non healing ulcer of right medial ankle History of Wound: Patient flew to [place] in January, he developed bilateral leg swelling and pain. On 03/30/20 he went to the ED for the bilateral leg edema. An ultrasound was performed and it was found that he had a superficial thrombophlebitis of his right proximal calf great saphenous vein and to varicose veins of the proximal mid calf. He was started on Xeralto. Repeat ultrasound of right leg on 04/24/20 showed some slight improvement from previous study. He developed effusion of his right knee that he had drained on 05/30/20 at [facility]. That seems to be resolved for the time being. He had an x- ray of his right ankle on 07/02/20 which showed swelling of his right ankle. He does have a history of vein issues for years. He has seen someone in the past, but does not remember who it was. For his wound care he had been using over the counter antibiotic ointment and placing a non-adherent gauze over the right medial wound. He has stopped wearing compression because it has become uncomfortable. Wound care - Collagen hydrogel covered by adaptic and topped with dry gauze daily. Double tubigrip for compression. Wound culture from 07/15/20 was positive for Staphylococcus haemolyticus. He was started on Doxycycline. Venous studies on 07/29/20 showed: Deep veins of the lower extremities show no evidence of deep vein thrombosis. The right sapheno-femoral junction is incompetent. The right great saphenous vein appears segmentally incompetent. The left great saphenous vein appears incompetent below the knee. The right small saphenous vein is patent and incompetent. The accessory saphenous vein in the right mid-thigh is incompetent. The varicosities in the right proximal calf are compressible, indicating resolution of the superficial thrombophlebitis previously noted in a prior study on 04/24/20. Arterial studies on 07/29/20 show: Left ALLYSON = 1.28. Right ALLYSON=1.31. The left digital-brachial index is mildly diminished. There is evidence of mild, distal, small-vessel arterial occlusive disease at the digital level on the left. He has an appointment with Dr. Henry on August 20. Patient relates that this went well and that he is planning on having an intervention with Dr. Henry tomorrow. Today he denies fever. He states he has a good appetite. Progress of Wound: improved Subjective Subjective Patient has been to see Dr. Henry and has been having procedures done on his right leg veins. Objective Data Objective Data Vital Signs: Vital Signs Temp Pulse Resp BP 97.9 F 65 16 154/89 H 09/01/20 10:18 09/01/20 10:18 08/26/20 11:26 09/01/20 10:18 Oxygen Delivery Method Room Air Body Mass Index (BMI) 25.2 Charges/Coding Procedures Integumentary [id number]: [id number] Kathi subq tissue 20 sq cm/< Physical Exam Const alert and oriented x3 General Appearance: cooperative HEENT normocephalic Head and Scalp: atraumatic Eyes PERRL Lymph Lymphatic: no lymphedema noted Resp normal respiratory effort Cardio regular rate GI normal to inspection, nondistended, normoactive bowel sounds Extremity normal capillary refill and no calf tenderness General Extremity: edema bilateral lower extremity Details: mild Skin Wound Narrative: Right medial ankle ulcer is much smaller in size. Neuro CN's II-XII intact bilaterally Psych Appearance: grossly normal Debridement Note Debridement Note Post-Debridement Measurements and Additional Note: Post-Debridement Measurements/Treatment - Nurse 1 - General Ulcer Assessment Start: 08/26/20 11:26 Freq: Status: Active Protocol: FRITZ.MEGAN Activity Type Activity Date Activity User E-Sign Co-Sign Detail Recorded Client Recorded Date Recorded By Document 08/26/20 11:26 [id number] 08/26/20 11:35 Document 09/01/20 10:18 KR [id number] 09/01/20 10:23 KR 08/26/20 09/01/20 11:26 10:18 - Today's Visit Information Type of service Follow-up Visit Follow-up Visit (Physician/SHOE FITTER (Physician/SHOE FITTER ) ) Arrival Mode Ambulatory Ambulatory Transfer Assistance None Accompanied by Patient Identification Verified (Name & Yes Yes ) Patient Requires Transmission-Based No Precautions Safety Precautions NA Height and Weight Body Mass Index (BMI) 25.2 25.2 BMI Classification Overweight Overweight Vital Signs Temperature (97.8 F-99.1 F) 97.9 F 97.9 F Temperature Source Temporal Temporal Pulse Rate (60-100) 65 65 Pulse Location Monitor Monitor Respiratory Rate (12-18) 16 Respiratory rate source Observation Oxygen Delivery Method Room Air Blood Pressure (90/60-120/80) 155/68 H 154/89 H Blood Pressure Mean (mm Hg) 97 110 Source Monitor Monitor Position Sitting Semi-Fowlers Blood Pressure Location Left Arm Left Arm History Since Last Visit- (Skip if this is Patient's initial visit) Have you changed medications since your No No last visit? Any new allergies or adverse reactions No No Had a fall/change in ADL's that may No No increase risk of falls Signs or symptoms of abuse and/or No No neglect since last visit Have you been in the hospital since your No No last visit? Has dressing in place as prescribed Yes Yes Has compression in place as prescribed Yes N/A Has offloadiing in place as prescribed N/A N/A Experienced any changes in pain level or No No management Left Footwear Regular Shoe Regular Shoe Right Footwear Regular Shoe Regular Shoe Pain Scale: 0-10 Numeric Is Patient Pain Free? Yes Yes WC - Nurse 1 - General Ulcer Measurement Start: 08/26/20 11:26 Freq: Status: Active Protocol: Activity Type Activity Date Activity User E-Sign Co-Sign Detail Recorded Client Recorded Date Recorded By Document 08/26/20 11:26 MW [id number] 08/26/20 11:35 MW Document 09/01/20 10:18 KR [id number] 09/01/20 10:23 KR 08/26/20 09/01/20 11:26 10:18 Wound Center Nurse 1 #1 R Med Ankle -Combined with other wound No -Current Size (cm) - Length 0.1 0.1 -Current Size (cm) - Width 0.1 0.1 -Current Size (cm) - Depth 0.1 0.1 -Total Square Cm 0.01 0.01 -Photo Taken No -Epithelialization None Present -Tunneling No -Undermining/Tunneling No -Circular Undermining No -Exudate Amt Small None Present -Exudate Type Serosanguineous -Wound Margin Flat & Intact Distinct, Outline Attached -Granulation Amt None Present (0 None Present (0 %) %) -Granulation Quality N/A -Slough/Fibrin Yes -Necrosis Amt Large (67-100%) None Present (0 %) -Necrotic Tissue Type Adherent Slough -Structure Exposed N/A -Texture (Mackenzie-wound Skin Appearance) Assessed, Assessed, Scarring Scarring -Moisture (Mackenzie-wound Skin Appearance) Assessed,Dry/ No Abnormality, Scaly Assessed -Color (Mackenzie-wound Skin Appearance) Assessed, No Abnormality, Hemosiderin Assessed Staining -Temperature (Mackenzie-wound Skin No Abnormality No Abnormality Appearance) (Pt Warm) (Pt Warm) -Tenderness on Palpation (Mackenzie-wound Yes No Skin Appearance) -Ulcer Cleansing Rinsed/ Rinsed/ Irrigated with Irrigated with Saline Saline -Foul Odor after Cleansing No No -Anesthetic Used 5% Lidocaine 5% Lidocaine Gel Gel Lower Limb Edema Present Yes Right Calf (cm) 37.5 Right Ankle (cm) 25.0 WC - Nurse 2 - General Ulcer CM Notes Start: 08/26/20 11:26 Freq: Status: Active Protocol: Activity Type Activity Date Activity User E-Sign Co-Sign Detail Recorded Client Recorded Date Recorded By Document 08/26/20 12:10 JF [id number] 08/26/20 12:12 JF Document 09/01/20 12:11 PL [id number] 09/01/20 12:12 PL 08/26/20 09/01/20 12:10 12:11 Wound Center Nurse 2 #1 R Med Ankle -Time 12:10 11:04 -Correct Patient Yes Yes -Correct Side, Site, Position Yes Yes -Correct Procedure Yes Yes -Procedure Performed Yes Yes -Type of Procedure Debridement Debridement -Clinical Debridement Subcutaneous Subcutaneous -Tissue Removed Subcutaneous Subcutaneous -Post Debridement (cm) - Length 0.6 0.2 -Post Debridement (cm) - Width 0.3 0.2 -Post Debridement (cm) - Depth 0.1 0.1 -Total Square (Post) (cm) 0.18 0.04 -Area of Debridement (cm) - Length 0.6 0.2 -Area of Debridement (cm) - Width 0.3 0.2 -Total Square (Area) (cm) 0.18 0.04 -Tunneling No No -Undermining/Tunneling No No -Circular Undermining No No -Wound/Ulcer Outcome Not Healed Not Healed -Ulcer Cleansing Rinsed/ Rinsed/ Irrigated with Irrigated with Saline Saline -Foul Odor after Cleansing No -Bioengineered Tissue No No -Bleeding Controlled with Pressure -Offloading No -Treatment Response Procedure Tolerated Well -Debridement - Subq, 1st 20sq cm Yes Yes Pain Scale: 0-10 Numeric Is Patient Pain Free? Yes Yes - Nurse 3 - General Ulcer D/C NN Start: 08/26/20 11:26 Freq: Status: Active Protocol: Activity Type Activity Date Activity User E-Sign Co-Sign Detail Recorded Client Recorded Date Recorded By Document 09/01/20 11:33 DL [id number] 09/01/20 11:34 DL 09/01/20 11:33 Wound Care Nurse 3 #1 R Med Ankle -Ulcer Cleansing Rinsed/ Irrigated with Saline -Foul Odor after Cleansing No -Primary Dressing Applied NonAdherent Contact Layer -Other Dressing hydrogel -Primary Dressing Covered/Secured with Dry Gauze, Secured with Tape -Other Covering tubigrip Treatment Response Procedure Tolerated Well Pain Scale: 0-10 Numeric Is Patient Pain Free? Yes WC - Visit Discharge Discharge Condition Stable Ambulatory Status Ambulatory Transportation Private Auto Accompanied by Wound debrided: Right medial ankle ulcer Laterality: Right Type of Debridement: Excisional debridement Anesthesia Used: 5% Lidocaine Gel Depth: Down to and including healthy tissue and in the subcutaneous layer Percentage of wound debrided: 100 Instrument Used: 3mm curette Tissue Removed: Subcutaneous tissue and slough Severity: Limited To Skin Breakdown Debridement Free Text: After debridement there is a small opening that still is not healed. Assessment/Plan Assessment/Plan (1) Ulcer of right medial lower extremity with fat layer exposed: CODE(S): L97.812 - Non-pressure chronic ulcer of other part of right lower leg with fat layer exposed (2) Venous insufficiency of right leg: CODE(S): I87.2 - Venous insufficiency (chronic) (peripheral) (3) Edema of right lower extremity: CODE(S): R60.0 - Localized edema PLAN: Wound care - Collagen hydrogel covered with adaptic then covered with gauze, secured with tape, daily to right medial ankle ulcer. Double Tubigrip for compression. The compression is making a big difference in his edema. Wound culture 07/15/20 positive for Staphylococcus haemolyticus. He has completed the Doxycycline. He had his vascular studies on 07/29/20. He had an appointment on August [address] Henry to discuss his venous insufficiency. Dr. Henry's note states that the patient has severe reflux in the saphenous veins. He will plan for vanaseal ablation of saphenous veins and then varithena ablation of residual branches. Instructed patient to discuss with Dr. Henry about compression and if he would prefer the patient to have knee high or thigh high compression stockings and the amount of compression. Instructed him to elevated his legs to help with the edema. Encouraged increased protein intake and Vitamin C (500-1,000mg daily). Follow up one week.
== END 2020-09-17 23:59 ==
LOC: WC 11:15
PROVIDERS: PCP Internal Medicine; Referring Provider Nurse Practitioner Family; Visit Provider Nurse Practitioner Family
DX: L97.312 Non-pressure chronic ulcer of right ankle with fat layer exposed (principal); I80.291 Phlebitis and thrombophlebitis of other deep vessels of right lower extremity; M79.89 Other specified soft tissue disorders; I87.2 Venous insufficiency (chronic) (peripheral); R60.0 Localized edema
CPT/HCPCS: 11042; 99213; G0463

== ENCOUNTER → 2020-10-14 08:52 | Outpatient (CLI) | payer MEDICARE, OTHER, SELFPAY ==
[2020-09-01 10:18] VITALS: BMI 25.2
== END ==
PROVIDERS: PCP Internal Medicine; Referring Provider Surgery Vascular Surgery; Visit Provider Surgery Vascular Surgery
DX: I83.893 Varicose veins of bilateral lower extremities with other complications (principal)
CPT/HCPCS: 93971

== ENCOUNTER → 2021-02-23 16:17 | Outpatient (CLI) | payer MEDICARE, OTHER, SELFPAY ==
--- NOTE | 2021-02-23 16:20 | RAD_ITS ---
STUDY: X-RAY - RIGHT HUMERUS REASON FOR EXAM: Male, 70 years old. PAIN TECHNIQUE: 2 view(s) of the humerus. COMPARISON: None. FINDINGS: Normal visualized humerus. There is no demonstrated fracture or osseous destructive process. There is no demonstrated soft tissue abnormality. RAD/Humerus min 2 Views IMPRESSION: Normal x-ray examination of the humerus. Electronically Signed: Lambert Nolen MD at 18:05 EST Tel , Service support ,
--- NOTE | 2021-02-23 16:20 | RAD_ITS ---
STUDY: X-RAY - LEFT HUMERUS REASON FOR EXAM: Male, 70 years old. PAIN TECHNIQUE: 2 view(s) of the humerus. COMPARISON: None. FINDINGS: Normal visualized humerus. There is no demonstrated fracture or osseous destructive process. There is no demonstrated soft tissue abnormality. RAD/Humerus min 2 Views IMPRESSION: Normal x-ray examination of the humerus. Electronically Signed: Lambert Nolen MD at 18:06 EST Tel , Service support ,
== END ==
PROVIDERS: PCP Internal Medicine; Referring Provider Internal Medicine; Visit Provider Internal Medicine
DX: M79.601 Pain in right arm (principal); M79.602 Pain in left arm
CPT/HCPCS: 73060

== ENCOUNTER → 2021-03-04 08:40 | Outpatient (CLI) | payer MEDICARE, OTHER, SELFPAY ==
--- NOTE | 2021-03-04 08:43 | BI_ITS ---
MAMMOGRAPHY - BILATERAL DIAGNOSTIC REASON FOR EXAM: Male, 70 years old. Right retroareolar breast tenderness and swelling. PERTINENT HISTORY: Non-contributory. TECHNIQUE: Digital bilateral breast lucille (3D mammographic acquisition) in the CC and MLO projections. 2-D mediolateral oblique (MLO) and craniocaudad (CC) views of both breasts were obtained. CAD: Full Field Digital Mammography with Computer Added Detection was performed. COMPARISON: None. Baseline examination. FINDINGS: Breast Composition: The breasts are almost entirely fatty. There are no dominant masses or suspicious calcifications. Asymmetry of breast tissue with more breast tissue is seen in the retroareolar region of the right breast. No other significant abnormalities are identified. BI/DIAG MAMM W/CAD, BILAT IMPRESSION: Asymmetrical breast tissue where more breast tissue is seen in the retroareolar region of the right breast as compared to the left side. Correlation with ultrasound is recommended. ASSESSMENT CATEGORY: BIRADS Category 0: Incomplete. Need additional imaging evaluation. A letter regarding these results will be sent to the patient by the facility within 30 days. Approximately 10% of breast cancers are not detected by mammography. A normal mammogram should not delay biopsy of a clinically suspicious abnormality. Electronically Signed: Stew Vincent MD at 10:09 EST , Service support ,
--- NOTE | 2021-03-04 08:43 | US_ITS ---
STUDY: ULTRASOUND BREAST - RIGHT REASON FOR EXAM: Male, 70 years old. Palpable lump in the right breast. TECHNIQUE: Axial and longitudinal images of the RIGHT breast were performed with a high resolution ultrasound transducer. # OF IMAGES: 45 COMPARISON: Comparison is made with prior mammogram done earlier today. FINDINGS: RIGHT Breast: The palpable lump corresponds to a 1.3 cm x 1.7 cm x 0.8 cm irregular hypoechoic nodule in the retroareolar region of the breast. A biopsy is recommended for further evaluation. US/Breast Limited Unilateral IMPRESSION: The palpable lump corresponds to 1.3 cm x 1.7 cm x 0.8 cm irregular hypoechoic nodule. A biopsy is recommended. ASSESSMENT CATEGORY: BIRADS Category 4: Suspicious - Biopsy Should Be Considered. A letter regarding these results will be sent to the patient by the facility within 30 days. Electronically Signed: Stew Vincent MD at 12:14 EST , Service support ,
== END ==
PROVIDERS: PCP Internal Medicine; Visit Provider Internal Medicine
DX: N63.10 Unspecified lump in the right breast, unspecified quadrant (principal); N62 Hypertrophy of breast
CPT/HCPCS: 76642; 77062; 77066; G0279

== ENCOUNTER → 2021-03-06 | Outpatient (CLI) | payer MEDICARE, OTHER, SELFPAY ==
--- NOTE | 2021-03-06 12:30 | BRBX_PTH ---
PATIENT: BHANU JUARES LOC: [facility] U#:[id number] AGE/SX: 70/M ROOM: RE03/06/[address]: Dr. Alin Colby MD : 1950 BED: DIS: 03/06/2021 SPEC #: [id number] RECD: 03/06/21 13:11 STATUS: MAVIS REJatin #: [id number] JEN: 03/06/21 12:[address]: Alin Colby DEPT: SURGICAL PATHOLOGY RECD BY: Porfirio Cordero ENTERED: 03/06/21 13:21 SP TYPE: BREAST BX HAYDEN DR: Dr. Asia Topete DO Tissues: Right breast, NOS Procedures: Surgery Specimen Level IV HEADER OPERATION: Right breast biopsy PRE-OP DIAGNOSIS: Abnormal breast ultrasound TISSUE SUBMITTED: Right breast tissue ISCHEMIC TIME: <1 minute FIXATION TIME: 56 hours MICROSCOPIC DIAGNOSIS Right breast, ultrasound-guided core biopsy: Consistent with gynecomastia. AM:aliyah 03/09/2021 MICROSCOPIC DESCRIPTION Slides are reviewed. GROSS DESCRIPTION Received in fixative is one container labeled with the patient's name and designated right breast biopsy. The specimen consists of multiple irregular and elongated fragments of schneider tissue that in aggregate measure 1.5 x 0.3 x 0.1 cm. The specimen is totally submitted in one cassette. / AM:aliyah 03/06/21 TC:5 CPT: 77148
== END | disposition home or self-care (01) ==
LOC: LABSPEC 13:20
PROVIDERS: PCP Internal Medicine; Referring Provider Surgery; Visit Provider Surgery
DX: R92.8 Other abnormal and inconclusive findings on diagnostic imaging of breast (principal)
CPT/HCPCS: 88305

== ENCOUNTER 2021-03-10 05:24 | Day surgery (SDC) | payer MEDICARE, OTHER, SELFPAY ==
[2021-03-10] VITALS (13 sets, daily range): BP systolic 111–139; BP diastolic 58–114; PULSE 53–60; RESP 16–20; TEMP 36.2–37; O2SAT 92–100; BMI 25.8
--- NOTE | 2021-03-10 06:19 | HP.PCM_ITS ---
HPI - General HPI Narrative BHANU JUARES, is a 70 M who presentsToday for screening colonoscopy. He has never had 1 previously. He denies any bright red blood per rectum or melena.no abdominal pain. He presents via open [facility] Medical History (Updated 03/10/21 @ 06:[address] Alin Colby MD) DVT (deep venous thrombosis) History of edema Leg cramps Non-smoker Wears glasses Home Medications ascorbic acid (vitamin C) 1,000 mg tablet 1 g PO DAILY tab 03/06/21 [History Last Taken Unknown] cholecalciferol (vitamin D3) 50 mcg (2,000 unit) capsule 1,000 unit PO DAILY cap 03/06/21 [History Last Taken Unknown] coenzyme Q10 300 mg capsule 100 mg PO DAILY cap 03/06/21 [History Last Taken Unknown] cyanocobalamin (vitamin B-12) 5,000 mcg capsule 5,000 mcg PO DAILY 03/06/21 [History Last Taken Unknown] magnesium 250 mg tablet 250 mg PO DAILY 03/06/21 [History Last Taken Unknown] Allergy/AdvReac Type Severity Reaction Status Date / Time No Known Allergies Allergy Verified 03/10/21 05:48 Family History (Updated 03/06/21 @ 12:25 by Juliana Tuesday) Sister Hypertension Brother Kidney disease Surgical History (Updated 03/09/21 @ 11:49 by Soraya Salazar) History of hernia surgery Hx of varicose vein ligation and stripping Social History (Reviewed 07/16/20 @ 14:47 by Nieves Doherty [employer] CHAU[employer], [employer]-C) Smoking Status: Never smoker ROS Constitutional Constitutional: Reports systems reviewed and no addt'l complaints, except as documented Cardiovascular Cardiovascular: Denies chest pain Respiratory/Chest Respiratory/Chest: Denies shortness of breath at rest Gastrointestinal Gastrointestinal: Denies abdominal pain, change in bowel habits, hematochezia or melena Vital Signs Vital Signs Vital Signs: 03/10/21 05:51 Temperature 98.6 F Temperature Source Temporal Pulse Rate 60 Respiratory Rate 16 Respiratory Pattern Normal Blood Pressure 134/71 H Blood Pressure Mean 92 Blood Pressure Source Monitor Blood Pressure Position Semi-Fowlers Blood Pressure Location Right Arm Pulse Ox 100 Oxygen Delivery Method Room Air Weight Weight: 169 lb 12.095 oz Body Mass Index (BMI) 25.8 Physical Exam Const alert, oriented x3 and no apparent distress General Appearance: cooperative and comfortable Eyes General Eye: normal appearance of both eyes Neck General: normal visual inspection Chest inspection of chest normal Resp Effort and Inspection: able to speak in complete sentences and symmetric chest m ovement Auscultation: clear to auscultation bilaterally Cardio regular rate and regular rhythm GI soft to palpation, non-tender and non-distended Extremity no calf tenderness Neuro oriented x3 Psych thought process normal Results Lab / Micro Data Micro: Microbiology 03/09/21 14:34 Interface Orders SARS-CoV-2 Antigen (Rapid) - Final Assessment & Plan Assessment/Plan (1) Screening for intestinal cancer: PLAN: The patient presents for an open access for screening colonoscopy. He is aware of the technique, benefit, risk, alternatives. He has had an opportunity to ask and have questions answered. He has had a recent deep venous thrombosis which has been appropriately treated. He is not currently on anticoagulation. Alin Colby M.D., F.A.C.S.
[2021-03-10] MEDS: Lactated Ringers 1,000 ML 15 ML IV (06:29)
[2021-03-10] MEDS: Midazolam 5 MG/ML Syringe (06:31)
[2021-03-10] MEDS: Glucagon 1 MG/ML Syringe (06:46)
--- NOTE | 2021-03-10 07:00 | OP.CCLET_ITS ---
03/10/2021 Asia Topete [address] [place] [address] Re : Colonoscopy procedure for Nilay French Dear Dr. Topete This procedure was performed on Wednesday, March 10, 2021. My impressions and recommendations are as follows: Impressions : - Non-thrombosed internal hemorrhoids, internal hemorrhoids (Grade I) and enlarged prostate found on digital rectal exam. - Diverticulosis in the sigmoid colon. - The examination was otherwise normal. - No specimens collected. Recommendations : - Discharge patient to home. - Resume previous diet. - Continue present medications. - Repeat colonoscopy in 10 years for screening purposes. My findings are described in the full procedure note, which is enclosed. If I can be of further assistance, please feel free to contact me at Doctor phone number(s): Work: . Sincerely, Alin Colby MD 03/10/2021 6:59:21 AM This report has been signed electronically.
--- NOTE | 2021-03-10 07:00 | OP.COLON_ITS ---
Patient Name: Nilay French Procedure Date: 03/10/2021 6:14 AM Date of : 1950 Age: 70 Procedure: Colonoscopy Indications: Screening for colorectal malignant neoplasm Providers: Alin Colby MD Medicines: Midazolam 4.5 mg IV, Meperidine 100 mg IV, Glucagon 1 mg IV Patient Profile: Last Colonoscopy: none. The patient's first colonoscopy is today. Complications: No immediate complications. Procedure: Pre-Anesthesia Assessment: - Prior to the procedure, a History and Physical was performed, and patient medications and allergies were reviewed. The patient's tolerance of previous anesthesia was also reviewed. The risks and benefits of the procedure and the sedation options and risks were discussed with the patient. All questions were answered, and informed consent was obtained. Prior Anticoagulants: The patient has taken no previous anticoagulant or antiplatelet agents. ASA Grade Assessment: II - A patient with mild systemic disease. After reviewing the risks and benefits, the patient was deemed in satisfactory condition to undergo the procedure. After I obtained informed consent, the scope was passed under direct vision. Throughout the procedure, the patient's blood pressure, pulse, and oxygen saturations were monitored continuously. The colonoscope was introduced through the anus and advanced to the cecum, identified by appendiceal orifice and ileocecal valve. The colonoscopy was performed without difficulty. The patient tolerated the procedure well. The quality of the bowel preparation was good. The ileocecal valve and the appendiceal orifice were photographed. Moderate Sedation: Moderate (conscious) sedation was personally administered by the endoscopist. The following parameters were monitored: oxygen saturation, heart rate, blood pressure, and response to care. Total physician intraservice time was 15 minutes. Scope In: 6:34:07 AM Scope Withdrawal Time 0 hours 12 minutes 52 seconds Scope Out: 6:54:39 AM Total Procedure Duration Time 0 hours 20 minutes 32 seconds Findings: The digital rectal exam findings include non-thrombosed internal hemorrhoids, internal hemorrhoids (Grade I) and enlarged prostate. Scattered diverticula were found in the sigmoid colon. The exam was otherwise without abnormality. Impression: - Non-thrombosed internal hemorrhoids, internal hemorrhoids (Grade I) and enlarged prostate found on digital rectal exam. - Diverticulosis in the sigmoid colon. - The examination was otherwise normal. - No specimens collected. Recommendation: - Discharge patient to home. - Resume previous diet. - Continue present medications. - Repeat colonoscopy in 10 years for screening purposes. Procedure Code(s): --- Professional --- 16051, Colonoscopy, flexible; diagnostic, including collection of specimen(s) by brushing or washing, when performed (separate procedure) 23984, 59, Moderate sedation services provided by the same physician or other qualified health pet care assistant performing the diagnostic or therapeutic service that the sedation supports, requiring the presence of an independent trained observer to assist in the monitoring of the patient's level of consciousness and physiological status; initial 15 minutes of intraservice time, patient age 5 years or older Diagnosis Code(s): --- Professional --- Z12.11, Encounter for screening for malignant neoplasm of colon K64.0, First degree hemorrhoids N40.0, Benign prostatic hyperplasia without lower urinary tract symptoms K57.30, Diverticulosis of large intestine without perforation or abscess without bleeding CPT copyright 2017 [employer]. All rights reserved. The codes documented in this report are preliminary and upon waitress review may be revised to meet current compliance requirements. Alin Colby MD 03/10/2021 6:59:21 AM This report has been signed electronically. Number of Addenda: 0 Note Initiated On: 03/10/2021 6:14 AM
== END 2021-03-10 07:44 | disposition home or self-care (01) ==
LOC: EN 05:24 → AC 05:24
PROVIDERS: PCP Internal Medicine; Referring Provider Surgery; Visit Provider Surgery
PROC: 0DJD8ZZ Inspection of Lower Intestinal Tract, Via Natural or Artificial Opening Endoscopic (ICD-10-PCS; CPT 45378; principal; 2021-03-10 06:25)
DX: Z12.11 Encounter for screening for malignant neoplasm of colon (principal); K64.0 First degree hemorrhoids; K57.30 Diverticulosis of large intestine without perforation or abscess without bleeding; N40.0 Benign prostatic hyperplasia without lower urinary tract symptoms; Z20.822 Contact with and (suspected) exposure to COVID-19
CPT/HCPCS: G0121; 87426; 99152; 99153; C9803; J7120; J1610

== ENCOUNTER → 2025-03-12 | Outpatient (CLI) | payer MEDICARE, OTHER, SELFPAY ==
--- NOTE | 2025-03-12 10:32 | MRI_ITS ---
PROCEDURE: BRAIN/IAC W/WO CONTRAST 03/12/2025 REASON FOR EXAM: Clinical history of tinnitus TECHNIQUE: Procedure Code: MRIBRWW Modality: MR Procedure: BRAIN/IAC W/WO CONTRAST Multiplanar and multisequence images were obtained. CONTRAST: Clariscan VOLUME: 16 mL COMPARISON: None available FINDINGS: The cisternal and canalicular segments of facial nerves (cranial nerve VII) and vestibulocochlear nerves (cranial nerve VIII) appear within normal limits. There is no evidence of enhancing mass or abnormal enhancement in the internal auditory canals or cerebellopontine angle cisterns. The vestibule, semicircular canals, and cochlea appear within normal limits bilaterally. The cisternal trigeminal nerves are intact. The bilateral Meckel's caves are unremarkable. No acute infarct or hemorrhage. Nonspecific scattered foci of periventricular and subcortical T2/FLAIR white matter hyperintensities in the cerebral hemispheres likely reflect chronic microischemic changes. No extra-axial fluid collection. No significant mass effect or herniation of the brain. The ventricular system and sulci/fissures are within expected limits of size and configuration for the patient's stated age. The basal cisterns are patent. The intracranial large vessel arterial flow voids are maintained. The mastoid air cells clear. There is scattered paranasal mucosal thickening. The orbits are unremarkable. The calvarial bone marrow signal is within normal limits. MRI/Brain W/WO Contrast IMPRESSION: No evidence of internal auditory canal or cerebellopontine angle cistern mass. No acute intracranial pathology. Reading Location: [id number]
== END | disposition home or self-care (01) ==
LOC: MRI 10:31
PROVIDERS: PCP Internal Medicine; Referring Provider Otolaryngology; Visit Provider Otolaryngology
DX: H93.11 Tinnitus, right ear (principal); H90.41 Sensorineural hearing loss, unilateral, right ear, with unrestricted hearing on the contralateral side
CPT/HCPCS: 70553; A9575; A4216